=== PATIENT | female | born 1940 | race Caucasian/White ===

== ENCOUNTER → 2016-08-21 14:19 | Outpatient (CLI) | payer MEDICARE, OTHER ==
[2014-01-14 09:53] VITALS: BMI 35.9
[~2016-08-21 14:19] MED LIST: ASPIRIN EC81 M1 PO; BYSTOLIC2.5 MG PO; BYSTOLIC5 MG PO; CARDIZEM 90 MG90 MG PO; CORDARONE200 MG PO; FISH OIL 1,0001 CA1 PO; FORTAMET500 MG/BOT PO; GLUCOTROL 5 MG T5 MG PO; HEMOCYTE PLUS C1 CAP PO; K-DUR20 MEQ PO; LANTUS SOL100 UNIT/1 SC; LASIX40 MG PO; LISINOPRIL-HCTZ1 TA2 PO; PREDNISONE20 MG PO; PREVACID15 MG PO; SUPER B COMPLE150 MG PO; VITAMIN D2000 UNIT PO; VITAMIN D250000 UNIT PO
== END | disposition home or self-care (01) ==
LOC: D.MRI 14:19
DX: G43.119 Migraine with aura, intractable, without status migrainosus (principal)

== ENCOUNTER 2016-08-31 13:00 | Outpatient (CLI) | payer MEDICARE, OTHER ==
[2014-01-14 09:53] VITALS: BMI 35.9
== END 2016-08-31 23:59 | disposition home or self-care (01) ==
LOC: D.MRI 13:00
DX: G93.9 Disorder of brain, unspecified (principal)

== ENCOUNTER 2016-09-03 17:29 | Inpatient (IN) | payer MEDICARE, OTHER ==
[~2016-09-03] VITALS: Ht 162.6 cm; Wt 85.9 kg
[2016-09-03] MEDS ORDERED: PRINIVIL10 MG PO (20:31)
[2016-09-03] MEDS ORDERED: PROBIOTIC1 EAC1 PO (20:32)
[2016-09-03 20:34] VITALS: BP 164/51; Ht 162.6 cm; Wt 85.9 kg
[2016-09-03] MEDS ORDERED: TOUJEO SOL300 UNIT/1 SC (21:01)
[2016-09-04] VITALS: BP 166/72
[2016-09-04 04:00] VITALS: BP 174/64
[2016-09-04 04:36] LABS: BASOPHILS 0.2 % (0-2); EOSINOPHILS 0.8 % (0-7); HEMATOCRIT 33.1 % (36.0-48.0); HEMOGLOBIN 11.1 g/dL (12-16); LYMPHOCYTES 28.2 % (15-50); MCH 32.2 pg (26.0-34.0); MCHC 33.5 g/dL (31.0-37.0); MCV 95.9 fL (80.0-100.0); MONOCYTES 8.7 % (2-11); NEUTROPHILS 62.1 % (40-80); PLATELET COUNT 174 10x3/uL (130-400); RBC 3.45 10x6/uL (4.00-5.40); RDW 13.1 % (11.5-14.5); WBC 5.3 10x3/uL (4.8-10.8)
[2016-09-04 04:56] LABS: INR 1.07 (0.85-1.17); PROTIME 13.8 SECONDS (11.6-15.0)
[2016-09-04 05:07] LABS: ANION GAP 11.3 mmol/L (8-16); CALCIUM 8.5 mg/dL (8.5-10.1); CARBON DIOXIDE 27.5 mmol/L (21.0-32.0); CREATININE - SERUM 1.3 mg/dL (0.6-1.3); MAGNESIUM - SERUM 2.2 mg/dL (1.8-2.4); PHOSPHOROUS 4.4 mg/dL (2.5-4.9); POTASSIUM - SERUM 3.8 mmol/L (3.5-5.1)
[2016-09-04 09:41] VITALS: BP 128/63
--- NOTE | 2016-09-04 11:13 | HP ---
PATIENT: LAURA HAMMOND MEDICAL RECORD: [id number] ACCOUNT: [id number] LOCATION:[address] : 44 ADMISSION DATE: 09/03/16 HISTORY AND PHYSICAL EXAMINATION Admission History and Physical HISTORY OF PRESENT ILLNESS: A 76-year-old female, received in transfer from [facility] where the patient was evaluated for chest pain, intractable nausea and vomiting, elevated D-dimer, hypertensive crisis. PAST MEDICAL HISTORY: Significant for hypertension, diabetes, coronary artery disease, hyperlipidemia and anxiety. PAST SURGICAL HISTORY: Coronary artery bypass graft, colonoscopy, EGD with esophageal dilatation, total abdominal hysterectomy, bilateral salpingo-oophorectomy, heart cath with stent in 2010 and appendectomy. SOCIAL HISTORY: . No history alcohol or tobacco. No illicit drug use. FAMILY HISTORY: Mother with cardiovascular disease, [place] times 2. Grandmother with heart disease. Grandfather with cancer. Brother with diabetes. REVIEW OF SYSTEMS: Acute chest pain, nausea and vomiting, started this afternoon, progressed, went into the ER as noted above. HEENT: No cephalgia, visual changes, tinnitus, epistaxis or dysphagia. CARDIOVASCULAR: Chest pain, resolved. Cardiac enzymes were negative at the ER in [place]. Denies palpitations. PULMONARY: Denies hemoptysis, denies night sweats. GASTROINTESTINAL: Denies hematemesis, hematochezia or melena. Does admit nausea and vomiting. GENITOURINARY: Denies dysuria, denies change in frequency. MUSCULOSKELETAL: No acute changes. ENDOCRINE: Denies polyuria, polydipsia or polyphagia. Has had labile glucose since her MRI with contrast. SHE IS ALLERGIC TO CONTRAST, had to have prednisone prophylaxis. CURRENT MEDICATIONS: Listed as aspirin 81 mg daily, B complex, vitamin D 50,000 units weekly, Pepcid 20 mg b.i.d., glipizide 5 mg, Lantus 10 units q.h.s., Synthroid 50 mcg daily, lisinopril/hydrochlorothiazide 10/12.5 daily and metformin 500 mg daily. PHYSICAL EXAMINATION: VITAL SIGNS: Temp 97.9, blood pressure is 164/51, heart rate 64, respirations 20 and O2 sat is 96% room air. GENERAL: Alert and oriented, mild to moderate distress secondary to nausea and vomiting. HEENT: Head is normocephalic and atraumatic. Eyes: Pupils are equally round and reactive. Ears: Canals patent. TMs are intact. Nose: Nares patent without drainage. Throat: No erythema, no exudates. NECK: Supple. No lymphadenopathy, no JVD. HEART: Regular rate and rhythm. No S3, S4, no rub. LUNGS: Clear to auscultation bilaterally. Breathing is nonlabored. ABDOMEN: Soft, mild epigastric tenderness, no rebound, no guarding. EXTREMITIES: Present times 4. Left lower extremity, positive Homans sign. HISTORY AND PHYSICAL [id number] LAURA HAMMOND NEUROLOGIC: Cranial nerves II through XII intact. No focal deficits. SKIN: Warm and dry. No rash. LABORATORY AND DIAGNOSTIC DATA: Reviewed from [place], BNP 135.7, glucose 280, BUN 32, creatinine 1.44. Sodium 138, potassium 4.2, chloride 102, bicarbonate 21.6. AST 17, ALT 16, alkaline phosphatase 61. CK 52, troponin 0.023. CBC: White count 8.7, hemoglobin 13.2, hematocrit 39.2 Chest x-ray reported with no abnormalities. D-dimer elevated at 750 ng/mL. ASSESSMENT AND PLAN: 1. Hypertensive crisis. Restart blood pressure medications. 2. Labile diabetes, sliding scale insulin. 3. Nausea and vomiting with history of esophageal stricture. We will obtain a barium swallow in a.m. 4. Persistent nausea and vomiting, Phenergan IV q.6 hours p.r.n., IV fluids. 5. Elevated D-dimer with positive Homans to left lower extremity. We will obtain a lower extremity ultrasound. Supportive care. TRANSINT:[id number] Voice Confirmation ID: [id number] DOCUMENT ID: [id number] LUDIN BERMEO DO at 1113 CC: [id number] DICTATION DATE: 09/03/162138 CMS EXPERT: 09/04/16 0018 ADM IN [facility] [address] [place] [address]
[2016-09-04] MEDS ORDERED: LEVSIN/ANASP0.125 MG PO (12:13)
[2016-09-04 12:23] VITALS: BP 146/51
--- NOTE | 2016-09-05 08:10 | DS ---
PATIENT:LAURA HAMMOND :44 MEDICAL RECORD: [id number] DISCHARGE SUMMARY ADMISSION DATE: 09/03/16 DISCHARGE DATE: 09/04/16 DATE OF ADMISSION: 09/03/2016. DATE OF DISCHARGE: 09/04/2016. ADMISSION DIAGNOSES: Hypertensive crisis, labile diabetes, intractable nausea and vomiting with history of esophageal stricture, elevated D-dimer, positive Homans left lower extremity. DISCHARGE DIAGNOSES: Esophageal spasm; nausea and vomiting, resolved. HOSPITAL COURSE: The patient was admitted as a transfer from the [facility] in [place], started with IV fluids, Phenergan for nausea, shows no relief with Zofran, symptoms improved. With her history of esophageal stricture, barium swallow was obtained. No stricture, but it did show esophageal spasm, poor esophageal motility. The patient is feeling much better. Cardiac enzymes were negative. She does have a cardiac history, has a stress test scheduled in the near future. She is anxious to go home. She is tolerating clear liquids. Discharged home in significantly improved condition. DISCHARGE MEDICATIONS: Per med rec. We will add Levsin p.r.n. esophageal spasm. FOLLOWUP: She will follow up with her credit assessment analyst, Dr. Bowie, follow up with her outside machinist apprentice and follow up with Dr. Duque, her GI physician if symptoms recur or persist. Counseled on a clear liquid diet, advance as tolerated, small portions. PHYSICAL EXAMINATION: VITAL SIGNS ON DISCHARGE: Temp 98.1, blood pressure is 128/63, heart rate is 77, respirations 19, O2 sats 98% on room air. GENERAL: Alert and oriented, no distress. HEART: Regular. LUNGS: Clear. ABDOMEN: Soft, nontender. EXTREMITIES: Present times 4. With the elevated D-dimer and Homans, this was likely reactionary, but left lower extremity DVT was negative for any occlusion. See chart for further details. TRANSINT:[id number] Voice Confirmation ID: [id number] DOCUMENT ID: [id number] LUDIN BERMEO DO at 0810 CC: [id number] DICTATION DATE: 09/04/16 1221 CLINICAL PRACTICE CONSULTANT: 09/05/16 0027 DIS IN 09/04/16 [facility] [address] [place] [address]
--- NOTE | 2016-09-05 13:39 | CN ---
PATIENT NAME:LAURA HAMMOND MEDICAL RECORD: [id number] : 44 LOCATION:[address] ADMIT DATE: 09/03/16 ACCOUNT: [id number] CONSULTING PHYSICIAN: SUMIT TREJO MD REFERRING PHYSICIAN: LUDIN BERMEO DO DATE OF CONSULTATION: 09/04/2016 HISTORY OF PRESENT ILLNESS: A 76-year-old lady with a known history of coronary artery disease, status post coronary artery bypass grafting, who had been doing fairly well, had onset yesterday of atypical chest pain, nausea and vomiting. She has had a stricture in the past. She presented to [place] ER and was somewhat hypertensive. The pain has resolved completely with resolution of hypertension. Cardiac enzymes negative. ECG without acute changes. We are asked to see her concerned her cardiovascular status. PAST MEDICAL HISTORY: Includes: 1. History of hypertension. 2. Diabetes mellitus. 3. Gastroesophageal reflux disease. 4. Esophageal stricture. MEDICATIONS: Include metformin 500 daily, glipizide 5 mg p.o. daily, insulin per scale, Prevacid 15 daily, aspirin 81 daily, lisinopril 10 daily. ALLERGIES: CONTRAST. SOCIAL HISTORY: Lives in [place]. She is a nonsmoker. She is able to take care of her ADLs. REVIEW OF SYSTEMS: The patient reports easy bruising but reports no swollen glands. The patient reports no fever, no night sweats, no significant weight gain, no significant weight loss. No significant exercise tolerance. The patient reports no dry eyes, no irritation, no vision change. Patient reports no difficulty hearing and no ear pain. Patient reports no frequent nose bleeds or nose and sinus problems. Patient reports on arm pain on exertion. No shortness of breath while lying down. No history of heart murmur. Patient reports no cough, no wheezing or coughing up blood. Patient reports no abdominal pain, no vomiting. Normal appetite. No diarrhea and not vomiting blood. No nausea and no constipation. Patient reports no incontinence. No difficulty urinating. No hematuria. No increased frequency. Patient reports no muscle aches. No weakness, no arthralgias, no back pain. No swelling of the extremities. Patient reports no abnormal mole, no jaundice, no rashes. Reports no loss of consciousness. No weakness and no numbness. No seizures, dizziness, or headaches. The patient reports no depression, no sleep disturbance, feeling safe in a relationship and no alcohol abuse. Patient reports on fatigue. Reports no runny nose or sinus pressure. No itching, no hives, and no frequent sneezing. PHYSICAL EXAMINATION: GENERAL: Pleasant female in no acute distress. VITAL SIGNS: Blood pressure 128/63, pulse 77 and regular. HEENT: Normocephalic, atraumatic. NECK: No bruits noted. HEART: Regular. A II/ systolic ejection murmur. LUNGS: Good air excursion. CONSULT REPORT [id number] LAURA HAMMOND ABDOMEN: Soft, nontender. EXTREMITIES: Pulse 2+. No edema. DIAGNOSTIC DATA: ECG without acute changes. IMPRESSION: Improving, I agree with current management. We will check echocardiographic study. Further recommendations based on the above. TRANSINT:[id number] Voice Confirmation ID: [id number] DOCUMENT ID: [id number] SUMIT TREJO MD at 1339 CC: [id number] DICTATION DATE: 09/04/16 1022 AIR TURNING MACHINE FEEDER: 09/04/16 1203 DIS IN 09/04/16 [facility] [address] [place] [address]
== END 2016-09-04 14:47 | disposition home or self-care (01) | DRG 392 ==
LOC: D.M2 17:29
PROVIDERS: ADMIT Family Medicine
DX: K22.4 Dyskinesia of esophagus (principal); I16.9 Hypertensive crisis, unspecified; E11.9 Type 2 diabetes mellitus without complications; I25.10 Atherosclerotic heart disease of native coronary artery without angina pectoris; E78.5 Hyperlipidemia, unspecified

== ENCOUNTER → 2016-09-26 15:08 | Outpatient (CLI) | payer MEDICARE, OTHER ==
[2016-09-03 20:34] VITALS: BMI 32.5
[~2016-09-26 15:08] MED LIST changes: +LEVSIN/ANASP0.125 MG PO; +PRINIVIL10 MG PO; +PROBIOTIC1 EAC1 PO; +TOUJEO SOL300 UNIT/1 SC
== END | disposition home or self-care (01) ==
LOC: D.RAD 15:08
DX: M54.5 Low back pain (principal); M79.1 Myalgia

== ENCOUNTER → 2016-12-14 09:02 | Outpatient (CLI) | payer MEDICARE, OTHER ==
[2016-09-03 20:34] VITALS: BMI 32.5
== END ==
LOC: D.MAMMO 09:02
DX: Z12.31 Encounter for screening mammogram for malignant neoplasm of breast (principal)

== ENCOUNTER 2017-02-28 11:43 | Inpatient (IN) | payer MEDICARE, OTHER ==
[~2017-02-28] VITALS: Ht 162.6 cm; Wt 87.5 kg
[2017-02-28] MEDS ORDERED: GLUCOTROL 5 MG T5 MG PO (12:07)
[2017-02-28 13:35] LABS: BASOPHILS 0.2 % (0-2); EOSINOPHILS 1.5 % (0-7); HEMATOCRIT 35.4 % (36.0-48.0); HEMOGLOBIN 11.8 g/dL (12-16); IMMATURE GRANULOCYTES 0.1 % (0-5); LYMPHOCYTES 10.2 % (15-50); MCH 32.4 pg (26.0-34.0); MCHC 33.3 g/dL (31.0-37.0); MCV 97.3 fL (80.0-100.0); MEAN PLATELET VOLUME 10.9 fL (7.4-10.4); PLATELET COUNT 207 10x3/uL (130-400); RBC 3.64 10x6/uL (4.00-5.40); RDW 12.8 % (11.5-14.5); WBC 8.1 10x3/uL (4.8-10.8)
[2017-02-28 13:41] VITALS: BP 153/65; Ht 162.6 cm; Wt 87.5 kg
[2017-02-28 13:50] LABS: INR 0.99 (0.85-1.17)
[2017-02-28 14:01] LABS: ALBUMIN 3.2 g/dL (3.4-5.0); ANION GAP 14.4 mmol/L (8-16); BILIRUBIN - TOTAL 0.5 mg/dL (0.2-1.3); CALCIUM 8.4 mg/dL (8.5-10.1); CARBON DIOXIDE 28.8 mmol/L (21.0-32.0); CREATININE - SERUM 1.5 mg/dL (0.6-1.3); POTASSIUM - SERUM 4.2 mmol/L (3.5-5.1); PROTEIN - SERUM 6.5 g/dL (6.4-8.2)
[2017-02-28 16:09] VITALS: BP 136/70
[2017-02-28 21:09] VITALS: BP 148/54
[2017-03-01 01:59] VITALS: BP 174/47
[2017-03-01 04:23] LABS: BASOPHILS 0.3 % (0-2); EOSINOPHILS 3.5 % (0-7); HEMATOCRIT 31.4 % (36.0-48.0); HEMOGLOBIN 10.5 g/dL (12-16); IMMATURE GRANULOCYTES 0.3 % (0-5); MCH 32.1 pg (26.0-34.0); MCHC 33.4 g/dL (31.0-37.0); MEAN PLATELET VOLUME 11.1 fL (7.4-10.4); MONOCYTES 11.8 % (2-11); NEUTROPHILS 66.1 % (40-80); PLATELET COUNT 212 10x3/uL (130-400); RBC 3.27 10x6/uL (4.00-5.40); RDW 12.8 % (11.5-14.5)
[2017-03-01 05:24] LABS: ALBUMIN 2.6 g/dL (3.4-5.0); ANION GAP 12.3 mmol/L (8-16); BILIRUBIN - TOTAL 0.3 mg/dL (0.2-1.3); CALCIUM 8.7 mg/dL (8.5-10.1); CARBON DIOXIDE 26.8 mmol/L (21.0-32.0); CREATININE - SERUM 1.5 mg/dL (0.6-1.3); POTASSIUM - SERUM 4.1 mmol/L (3.5-5.1); PROTEIN - SERUM 5.9 g/dL (6.4-8.2)
[2017-03-01 05:54] VITALS: BP 181/73
[2017-03-01 07:55] VITALS: BP 155/58
[2017-03-01] MEDS ORDERED: MILK OF MAGNESI30 ML PO (08:52)
[2017-03-01] MEDS ORDERED: XARELTO15 MG PO (09:20)
== END 2017-03-01 10:40 | disposition home or self-care (01) | DRG 301 ==
LOC: D.M2 11:43
PROVIDERS: ADMIT Family Medicine
DX: I82.402 Acute embolism and thrombosis of unspecified deep veins of left lower extremity (principal); I25.10 Atherosclerotic heart disease of native coronary artery without angina pectoris; E11.9 Type 2 diabetes mellitus without complications; I10 Essential (primary) hypertension; K21.9 Gastro-esophageal reflux disease without esophagitis; F41.8 Other specified anxiety disorders

== ENCOUNTER → 2017-03-09 16:01 | Outpatient (CLI) | payer MEDICARE, OTHER ==
[2017-02-28 13:41] VITALS: BMI 32.7
[~2017-03-09 16:01] MED LIST changes: +MILK OF MAGNESI30 ML PO; +XARELTO15 MG PO
== END | disposition home or self-care (01) ==
LOC: D.CT 16:01
DX: I82.409 Acute embolism and thrombosis of unspecified deep veins of unspecified lower extremity (principal)

== ENCOUNTER 2017-04-19 13:41 | Outpatient (CLI) | payer MEDICARE, OTHER ==
[2017-04-19 15:21] VITALS: BP 145/96; Ht 162.6 cm
== END 2017-04-19 23:12 | disposition home or self-care (01) ==
LOC: D.OPS 13:41 → D.MS 20:40 → D.OPS 23:12
DX: D64.9 Anemia, unspecified (principal)

== ENCOUNTER → 2017-06-25 15:48 | Outpatient (CLI) | payer MEDICARE, OTHER | END | disposition home or self-care (01) | LOC: D.CT 15:30 | DX: R51 Headache (principal) ==

== ENCOUNTER → 2018-02-06 18:26 | Outpatient (CLI) | payer MEDICARE, OTHER | END | disposition home or self-care (01) | LOC: D.MAMMO 11:45 | DX: Z12.31 Encounter for screening mammogram for malignant neoplasm of breast (principal) ==

== ENCOUNTER → 2018-04-26 16:09 | Outpatient (CLI) | payer MEDICARE, OTHER ==
[~2018-04-26 16:09] MED LIST changes: +COUMADIN2.5 MG PO; +PLAVIX75 MG PO; +PROTONIX40 MG PO
== END | disposition home or self-care (01) ==
LOC: D.CT 16:09
DX: R10.32 Left lower quadrant pain (principal)

== ENCOUNTER 2018-05-11 04:54 | Observation (INO) | payer MEDICARE, OTHER ==
[~2018-05-11] VITALS: Ht 162.6 cm; Wt 91.4 kg
--- NOTE | ~2018-05-11 | HEMODYNAMI ---
PATIENT:LAURA HAMMOND MEDICAL RECORD: [id number] : 44 LOCATION:[facility] D.2102 ADMISSION DATE: 05/11/18 Generatedon:05/12/20189:37 Patient name: LAURA HAMMOND Patient #: [id number] SSN: : 1940 Date of study: 05/12/2018 Page: Of Hemodynamic Procedure Report Patient Data Patient Demographics Procedure consent was obtained First Name: LAURA Gender: Female Last Name: STEPHANY : 1940 [facility] Initial: Kimberlee Age: 77 year(s) Patient #: [id number] Race: Unknown Additional ID: [id number] Contact details [address]: [address] [place] [address] State: [place] City: [place] Zip code: [address] Past Medical History Allergies Allergen Reaction Date Comments Reported Iodine 05/12/2018 Penicillins 05/12/2018 Statins 05/12/2018 Other allergy 05/12/2018 Gadolinium, vaseline, cipro Admission Admission Data Admission Date: 05/11/2018 Admission Time: 6:12 Room #: D.2102 Procedure Procedure Types Cath Procedure Diagnostic Procedure [facility] w/Coronaries w/Grafts Sedation Charges Moderate Sedation up to 30 minutes PCI Procedure Coronary Stent Coronary Stent Initial Procedure Description Procedure Date Procedure Date: 05/12/2018 Procedure Start Time: 8:59 Procedure End Time: 9:36 Procedure Staff Name Function Mohinder Kelly MD Performing Physician Rowan Davila RT Monitor Sylvester Schroeder RN Nurse Rupali Harrington RT Scrub Procedure Data Cath Procedure Fluoroscopy Diagnostic fluoroscopy Total fluoroscopy Time: 7.2 time: 7.2 min min Diagnostic fluoroscopy Total fluoroscopy dose: dose: 1200 mGy 1200 mGy Contrast Material Contrast Material Type Amount (ml) Isovue 300 148 Entry Location Entry Primary Successful Side Size Upsize Upsize Entry Closure Succes sful Closure Location (Fr) 1 (Fr) 2 (Fr) Remarks Device Remarks Femoral Right 5 Fr 6 Fr 6 Fr Exoseal artery Short Short Estimated blood loss: 10 ml Diagnostic catheters Device Type Used For End Catheter Placement MULTIPACK JL 4.0 5Fr Left Coronary catheter Angiography MULTIPACK 3DRC 5Fr Right Coronary catheter Angiography MULTIPACK 3DRC 5Fr SVG Angiography catheter MULTIPACK 3DRC 5Fr Internal mammary catheter arteriography MULTIPACK Pigtail 5 Fr LV Angiography catheter MULTIPACK Pigtail 5 Fr Aortic Root catheter Angiography Procedure Complications No complications Procedure Medications Medication Administration Route Dosage Oxygen etCO2 Nasal cannula 2 l/min Heparin Flush Bag added to field 2 bags (1000units/500ml NS) 0.9% NaCl I.V. 100 ml/hr Lidocaine 2% added to field 20 Fentanyl I.V. 50 mcg Versed I.V. 1 mg Fentanyl I.V. 50 mcg Versed I.V. 1 mg Heparin Bolus I.V. 4000 units Integrilin (Bolus I.V. 8.5 ml 2mg/ml) Integrilin (Bolus wasted 1.5 ml 2mg/ml) Plavix P.O. 600 mg Hemodynamics Rest Heart Rate: 85 (bpm) Pressure Samples Time Site Value (mmHg) Purpose Heart Use Rate(bpm) 9:09 LV 160/0,9 EDP 89 9:09 AO 160/68(108) Pullback 89 9:09 LV 153/9,9 Pullback 89 9:09 AO 158/67(106) Snapshot 89 Gradients Valve Time Site 1 Site 2 Mean SEP/DFP Peak To Heart Use (mmHg) (sec/min) Peak Rate (mmHg) (bpm) Aortic 9:09 LV AO 0 89 153/9,9 160/68(108) Calculations Valve P-P Mean Valve Index Valve Source Name Gradient Area Flow (cm2) Aortic 0 0 Snapshots Pre Cath Intra NCS Post Cath Vital Signs Time Heart Resp SPO2 etCO2 NIBP (mmHg) Rhythm Pain Sedation Rate (ipm) (%) (mmHg) Status Level (bpm) 8:48:55 94 16 99 25.4 190/89(145) NSR 0 (11) 10(A) , No pain 8:53:20 89 16 99 31.5 188/91(140) NSR 0 (11) 10(A) , No pain 8:57:44 84 17 99 29.2 177/76(125) NSR 0 (11) 9(A) , No pain 9:02:08 86 16 98 34.5 168/89(125) NSR 0 (11) 9(A) , No pain 9:06:32 87 17 98 36.7 173/77(125) NSR 0 (11) 9(A) , No pain 9:10:57 87 16 98 36 173/75(128) NSR 0 (11) 9(A) , No pain 9:15:19 86 16 98 36.7 162/78(120) NSR 0 (11) 9(A) , No pain 9:19:43 85 16 98 35.9 165/75(136) NSR 0 (11) 9(A) , No pain 9:24:05 84 17 98 32.9 165/75(125) NSR 0 (11) 9(A) , No pain 9:28:29 83 16 97 36.7 169/79(130) NSR 0 (11) 9(A) , No pain 9:30:01 82 17 97 33.7 182/88(134) NSR 0 (11) 9(A) , No pain Medications Time Medication Route Dose Verified Delivered Reason Notes Effectiveness by by 8:54:42 Oxygen etCO2 2 Mohinder Phan Per physician Nasal l/min St Brian Schroeder RN cannula 8:54:49 Heparin Flush added 2 Mohinder Sylvester used for Bag to bags St Brian Schroeder RN procedure (1000units/500ml field NAZARIO NS) 8:54:57 0.9% NaCl I.V. 100 Mohinder Phan Per physician ml/hr St Brian Schroeder RN, MD 8:55:06 Lidocaine 2% added 20ml Mohinder Phan used for to vial St Brian Schroeder RN procedure field NAZARIO 8:56:23 Fentanyl I.V. 50 Mohinder Jacky for sedation mcg St Brian Schroeder RN, MD 8:56:29 Versed I.V. 1 mg Mohinder Phan for sedation St Brian Schroeder RN, MD 9:01:26 Fentanyl I.V. 50 Mohinder Phan for sedation mcg [facility] Brian Schroeder RN, MD 9:01:30 Versed I.V. 1 mg Mohinder Jacky for sedation [facility] Brian Schroeder RN, MD 9:15:54 Heparin Bolus I.V. 4000 Mohinder Phan for units [facility] Brian Schroeder RN anticoagulation 9:16:06 Integrilin I.V. 8.5 Mohinder Phan for (Bolus 2mg/ml) ml Leticia Schroeder RN antiplatelet MD therapy 9:16:12 Integrilin wasted 1.5 Mohinder Phan for (Bolus 2mg/ml) ml St Brian Schroeder RN antiplatelet MD therapy 9:29:29 Plavix P.O. 600 Mohinder Phan for mg [facility] Brian Schroeder RN antiplatelet MD therapy Procedure Log Time Note 8:14:33 Time tracking: Regular hours (M-F 7:00 - 5:00) 8:14:37 Plan of Care:Hemodynamics will remain stable., Cardiac rhythm will remain stable., Comfort level will be maintained., Respiratory function will remain adequate., Patient/ family verbilizes understanding of procedure., Procedure tolerated without complication., Recovers from procedure without complications.. 8:29:20 Sylvester Schroeder RN sent for patient. Start room use. 8:39:16 Patient received from PCU to CCL 2 Alert and oriented. Tansferred to table in Supine position. 8:39:17 Warm blankets applied, and nicolette hugger turned on for patient comfort. 8:39:17 Correct patient and procedure confirmed by team. 8:39:19 Signed procedure consent form obtained from patient. 8:39:19 ECG and BP/O2 sat monitors applied to patient. 8:39:20 Full Disclosure recording started 8:47:41 Vital chart was started 8:47:47 Rhythm: sinus rhythm 8:47:57 H&P Date Dictated: 05/11/2018 Within 30 days and on chart.. 8:47:58 Pre-procedure instructions explained to patient. 8:47:59 Pre-op teaching completed and patient verbalized understanding. 8:48:00 Family in patients room. 8:48:01 Patient NPO since Midnight. 8:48:07 Patient allergic to Iodine 8:48:14 Patient allergic to Penicillins 8:48:22 Patient allergic to Statins 8:49:07 Patient allergic to Other allergy Gadolinium, vaseline, cipro 8:49:11 Is the patient allergic to Iodine/contrast media? Yes. 8:49:11 Was the patient premedicated? Yes 8:49:13 Is patient on blood thinner?Yes 8:49:35 LAST DOSE OF COUMADIN 05/10/18 8:49:37 Patient diabetic? Yes. 8:49:38 If diabetic: On Metformin? Yes 8:49:40 If on Metformin: Last Dose? 05/10/2018 8:50:03 Previous problem with sedation/anesthesia? Yes DIFFICULTY WAKING 8:50:05 Snore? Yes 8:50:08 Sleep apnea? Yes 8:50:09 Deviated septum? No 8:50:10 Opens mouth fully? Yes 8:50:11 Sticks out tongue? Yes 8:50:15 Airway obstruction? No ? 8:50:17 Dentures? No ? 8:50:20 Pre procedure: right dorsailis pedis pulse 2+ Normal; easily identifiable; not easily obliterated 8:50:23 Patient pain scale 0/10 ?. 8:50:32 IV patent on arrival in right antecubital with 0.9% NaCl at [facility]. 8:50:34 Lab results completed and on chart. 8:50:37 Right groin area was prepped with chlora-prep and draped in sterile fashion 8:50:38 Alarms reviewed by R. N. 8:50:38 Sharps counted by scrub and verified by R.N. 8:50:41 Use device set Femoral Dx 8:50:42 ACIST Syringe (97159) opened to sterile field. 8:50:42 Bag Decanter (2002S) opened to sterile field. 8:50:43 Medline Cath Pack ([id number]) opened to sterile field. 8:50:43 DIAGNOSTIC WIRE .035 260cm J wire (105508) opened to sterile field. 8:50:44 ACIST Hand Control (73884) opened to sterile field. 8:50:45 ACIST Manifold (99247) opened to sterile field. 8:50:45 DIAGNOSTIC Multipack 5Fr catheter set ([id number]) opened to sterile field. 8:50:46 Tegaderm 4 x 4 (1626W) opened to sterile field. 8:50:48 SHEATH 5FR [place] (TEJ536) opened to sterile field. 8:54:42 Oxygen 2 l/min etCO2 Nasal cannula was administered by Sylvester Schroeder RN; Per physician; 8:54:49 Heparin Flush Bag (1000units/500ml NS) 2 bags added to field was administered by Sylvester Schroeder RN; used for procedure; 8:54:57 0.9% NaCl 100 ml/hr I.V. was administered by Sylvester Schroeder RN; Per physician; 8:55:06 Lidocaine 2% 20ml vial added to field was administered by Sylvester Schroeder RN; used for procedure; 8:55:56 Final Timeout: patient, procedure, and site verified with staff and physician. All members of the team are in agreement. 8:55:58 Right groin site verified by team. 8:56:01 Fire Safety Assessment: A--An alcohol-based skin anteseptic being used preoperatively., C--Open oxygen or nitrous oxide is being used. 8:56:04 Physical assessment completed. ASA score P 2 - A patient with mild systemic disease as per Mohinder Kelly MD. 8:56:07 Sedation plan: IV Moderate Sedation Medication:Versed, Fentanyl 8:56:20 Baseline sample Acquired. 8:56:23 Fentanyl 50 mcg I.V. was administered by Sylvester Schroeder RN; for sedation; 8:56:29 Versed 1 mg I.V. was administered by Sylvester Schroeder RN; for sedation; 8:59:24 Procedure started. 8:59:28 Local anesthetic to right femoral artery with Lidocaine 2% by Mohinder Kelly MD.INITIAL ACCESS ONLY 9:00:12 A 5 Fr sheath was inserted into the Right Femoral artery 9:01:26 Fentanyl 50 mcg I.V. was administered by Sylvester Schroeder RN; for sedation; 9:01:30 Versed 1 mg I.V. was administered by Sylvester Schroeder RN; for sedation; 9:02:44 A MULTIPACK JL 4.0 5Fr catheter was advanced over the wire and used for Left Coronary Angiography. 9:04:04 Catheter removed. 9:04:49 A MULTIPACK 3DRC 5Fr catheter was advanced over the wire and used for Right Coronary Angiography. 9:06:01 A MULTIPACK 3DRC 5Fr catheter was advanced over the wire and used for SVG Angiography. TO RCA OCCLUDED 9:07:37 A MULTIPACK 3DRC 5Fr catheter was advanced over the wire and used for Internal mammary arteriography. TO LAD--ATRETIC 9:07:42 Catheter removed. 9:07:50 A MULTIPACK Pigtail 5 Fr catheter was advanced over the wire and used for LV Angiography. 9:09:04 LV gram done using WEN 9:09:05 LV hemodynamics recorded. 9:09:08 Injector settings: Ml/sec: 10, Volume: 20, 9:09:12 EF : 55 % 9:09:49 A MULTIPACK Pigtail 5 Fr catheter was advanced over the wire and used for Aortic Root Angiography. 9:10:52 Catheter removed. 9:10:55 Use device set SALEM PCI 9:10:57 SHEATH 6FR [place] (JUI274) opened to sterile field. 9:11:00 INFLATOR Merit BasixCompak (HV0491) opened to sterile field. 9:11:02 WHISPER 300cm guide wire ([id number]) opened to sterile field. 9:11:58 GUIDE 6FR HS I catheter (LA6HSI) opened to sterile field. 9:12:08 Sheath upsized to a 6 Fr Short. 9:12:25 6 Fr HS I guide catheter was inserted over the wire 9:14:35 WHISPER wire advanced. 9:15:54 Heparin Bolus 4000 units I.V. was administered by Sylvester Schroeder RN; for anticoagulation; 9:16:06 Integrilin (Bolus 2mg/ml) 8.5 ml I.V. was administered by Sylvester Schroeder RN; for antiplatelet therapy; 9:16:12 Integrilin (Bolus 2mg/ml) 1.5 ml wasted was administered by Sylvester Schroeder RN; for antiplatelet therapy; 9:17:22 Inflate balloon Inflation number: 1 A EUPHORA 3.0 x 20 Balloon ([id number]) was prepped and advanced across the Dist RCA, then inflated to 10 RAMIREZ for 0:20 (min:sec). 9:18:17 Inflation number: 2 The EUPHORA 3.0 x 20 Balloon ([id number]) was reinflated across the Dist RCA, to 12 RAMIREZ for 0:20 (min:sec). 9:18:41 Balloon removed over the wire. 9:22:12 Place stent Inflation Number: 3 A LASHAE OTW 3.0 x 12 stent ([id number]) was prepped and advanced across the Dist RCA. The stent was deployed at 14 RAMIREZ for 0:20 (min:sec). 9:22:55 Stent catheter was removed intact over wire. 9:23:35 GUIDE 6FR EBU 4.0 guide catheter ([id number]) opened to sterile field. 9:25:35 Place stent Inflation Number: 4 A LASHAE OTW 3.0 x 34 stent ([id number]) was prepped and advanced across the Dist RCA. The stent was deployed at 14 RAMIREZ for 0:30 (min:sec). 9:26:01 Stent catheter was removed intact over wire. 9::03 Wire removed. 9::04 Guide catheter removed. 9:27:06 Sheath upsized to a 6 Fr Short. 9:27:39 6FR SHEATH KINKED, REPLACED WITH NEW SHEATH 9::45 Sheath removed intact; hemostasis achieved with Exoseal to the Right Femoral artery. 9::47 Procedure ended.(Physican Out) 9::14 Fluoroscopy time 07.20 minutes. 9:28:20 Fluoroscopy dose: 1200 mGy 9::20 Flurop Dose total: 1200 9:: Contrast amount:Isovue 300 148ml. 9:28:29 Sharps counted by scrub and verified by R.N. 9:28:30 Insertion/operative site no bleeding no hematoma. 9:28:33 Post-op/insertion site Right Femoral artery dressed using a 4 x 4 and Tegaderm. 9:28:37 Post right femoral artery:stable, clean and dry 9:28:38 Post Procedure Pulses reassessed and unchanged 9:28:44 Post-procedure physical assessment completed. ASA score P 2 - A patient with mild systemic disease as per Mohinder Kelly MD. 9:28:47 Post procedure rhythm: unchanged. 9:28:52 Estimated blood loss: 10 ml 9:28:54 Post procedure instruction explained to patient.Patient verbalizes understanding. 9:28:54 Patient needs reinforcement of post procedure teaching. 9:29:04 Procedure type changed to Cath procedure, Diagnostic procedure, LHC, LHC w/Coronaries w/Grafts, Sedation Charges, Moderate Sedation up to 30 minutes, PCI procedure, Coronary Stent, Coronary Stent Initial 9:29:17 Procedure Complication : No complications 9:29:27 SHEATH 6FR [place] (STQ029) opened to sterile field. 9:29:29 Plavix 600 mg P.O. was administered by Sylvester Schroeder RN; for antiplatelet therapy; 9:29:30 See physician's report for complete and final results. 9:29:47 EXOSEAL 6Fr (EX600) opened to sterile field. 9:30:29 Procedure and supply charges have been captured, reviewed, submitted and are correct. 9:32:36 Vital chart was stopped 9:32:38 Report given to PCU. 9:32:41 Patient transfered to PCU with Bed. 9:36:40 Procedure ended. 9:36:40 Full Disclosure recording stopped 9:36:44 End room use (Document Last) Intervention Summary Intervention Notes Time ActionType Lesion and Equipment Action# Pressure Duration Attributes Used 9:17:22 Inflate Dist RCA EUPHORA 3.0 x 1 10 00:20 balloon 20 Balloon ([id number]) 9:18:17 Reinflate Dist RCA EUPHORA 3.0 x 2 12 00:20 balloon 20 Balloon ([id number]) 9:22:12 Place stent Dist RCA LASHAE OTW 3.0 3 14 00:20 x 12 stent ([id number]) 9:25:35 Place stent Dist RCA LASHAE OTW 3.0 4 14 00:30 x 34 stent ([id number]) Device Usage Item Name Manufacture Quantity Catalog Hospital Part Current Mini [facility] Lot# / Number Charge Number Stock Stock Serial# Code ACIST Syringe Acist 1 61715 812724 232722 248557 20 (49115) Medical Systems Inc Bag Decanter Microtek 1 2002S 014308 25002 403538 5 (2001S) Medical Inc. Medline Cath Medline 1 [id number] 353214 77866 246967 5 Pack ([id number]) DIAGNOSTIC [facility] Huber 1 505073 844821 697884 458915 30 WIRE .035 260cm J wire (615577) ACIST Hand Acist 1 94727 378862 345077 092663 5 Control Medical (26426) Systems Inc ACIST Acist 1 53055 977615 490347 984596 5 Manifold Medical (85906) Systems Inc DIAGNOSTIC Cardinal 1 YX6833 510849 75953 186188 30 Multipack 5Fr Health catheter set (OD9436) Tegaderm 4 x 3M 1 1626W 809707 606660 925361 5 4 (1626W) SHEATH 5FR Terumo 1 CRU919 613540 707661 547624 5 [place] (WNY524) MULTIPACK JL Cardinal 1 799971 5 4.0 5Fr Health catheter MULTIPACK Cardinal 1 719173 5 3DRC 5Fr Health catheter MULTIPACK Cardinal 1 360684 5 Pigtail 5 Fr Health catheter SHEATH 6FR Terumo 2 AAX383 517497 025740 999748 40 [place] (BMO793) INFLATOR Merit 1 IT7738 694697 015979 403874 15 [facility] Medical BasixCompak (IG7546) WHISPER 300cm Sweet 1 [id number] 330508 327495 812784 5 guide wire Vascular ([id number]) GUIDE 6FR HS Medtronic 1 LA6HSI 453403 16439 216553 1 I catheter (LA6HSI) EUPHORA 3.0 x Medtronic 1 ILQ2195Q 589261 155033 015816 5 20 Balloon ([id number]) LASHAE OTW 3.0 Medtronic 1 [id number] 008627 9101417 209895 5 [id number] x 12 stent ([id number]) GUIDE 6FR EBU Medtronic 1 TS4UHR87 289704 66203 422096 1 4.0 guide catheter ([id number]) LASHAE OTW 3.0 Medtronic 1 [id number] 087743 3884407 549400 5 [id number] x 34 stent ([id number]) EXOSEAL 6Fr Cardinal 1 EX600 122968 228914 862539 10 (EX600) Health Signature Audit [place] Stage Time Signature Unsigned Intra-Procedure 05/12/2018 Rowan 9:36:56 AM Counts RT(R) Signatures Monitor : Rowan Signature : Counts RT Date : Time : [facility] [address] [facility] [place] [address]
[~2018-05-11 04:54] MED LIST changes: -COUMADIN2.5 MG PO; -PLAVIX75 MG PO; -PROTONIX40 MG PO
[2018-05-11 05:24] LABS: BASOPHILS 0.3 % (0-2); EOSINOPHILS 1.5 % (0-7); HEMATOCRIT 36.7 % (36.0-48.0); HEMOGLOBIN 12.3 g/dL (12-16); IMMATURE GRANULOCYTES 0.2 % (0-5); LYMPHOCYTES 18.5 % (15-50); MCHC 33.5 g/dL (31.0-37.0); MCV 95.6 fL (80.0-100.0); MEAN PLATELET VOLUME 11.2 fL (7.4-10.4); MONOCYTES 11.1 % (2-11); NEUTROPHILS 68.4 % (40-80); PLATELET COUNT 212 10x3/uL (130-400); RBC 3.84 10x6/uL (4.00-5.40); RDW 13.6 % (11.5-14.5); WBC 5.9 10x3/uL (4.8-10.8)
[2018-05-11 05:36] LABS: APTT 38.1 SECONDS (22.8-39.4); INR 1.8 (0.85-1.17); PROTIME 20.2 SECONDS (11.6-15.0)
[2018-05-11 05:42] LABS: ALBUMIN 3.5 g/dL (3.4-5.0); ALKALINE PHOSPHATASE 70 U/L (46-116); ALT (SGPT) 23 U/L (10-68); CALC OSMOLALITY 287 mosm/kg (275-300); CARBON DIOXIDE 27.1 mmol/L (21.0-32.0); CHLORIDE - SERUM 103 mmol/L (98-107); CREATININE - SERUM 1.4 mg/dL (0.6-1.3); GLUCOSE 159 mg/dL (74-106); POTASSIUM - SERUM 4.4 mmol/L (3.5-5.1); SODIUM 140 mmol/L (136-145); UREA NITROGEN 28 mg/dL (7-18); eGFR NON AFRICAN AMERICAN 39 mL/min (90-120)
[2018-05-11 05:55] LABS: CKMB 2.4 U/L (0.0-3.6); CREATINE KINASE 103 UL (21-215); MAGNESIUM - SERUM 1.9 mg/dL (1.8-2.4); PRO BNP 329 pg/mL (0-450); TROPONIN-I 0.025 ng/mL (0.000-0.060)
--- NOTE | 2018-05-11 07:15 | NUR ---
ASSISTED PT TO RESTROOM AND BACK TO BED. PT ALERT AND ORIENTED X 4 AT THIS TIME PT DENIES ANY PAIN AT THIS TIME. WILL CON'T TO MONITOR PATIENT FOR CHANGES.
[2018-05-11] MEDS ORDERED: COUMADIN2.5 MG PO (08:08)
--- NOTE | 2018-05-11 08:23 | NUR ---
PT REFUSED ALL MEDICATIONS EXCEPT FOR BP MEDICATION D/T "LAST TIME I WAS IN HERE, MY INSURANCE DIDN'T PAY FOR ALL MY MEDICATIONS SO IF I'M NOT GOING TO BE IN HERE LONG THEN I DON'T WANT TO TAKE ANY OF THAT."
[2018-05-11 08:24] VITALS: BP 165/57
--- NOTE | 2018-05-11 08:46 | NUR ---
GOT REPORT FROM ER.
--- NOTE | 2018-05-11 08:55 | NUR ---
PT TO THE FLOOR VIA WHEELCHAIR. TELEMTRY ON. AT BEDSIDE. PT STATES THAT SHE WOULD LIKE TO GO HOME AND IS FEELING MUCH BETTER.
--- NOTE | 2018-05-11 10:03 | NUR ---
OREINTED TO ROOM. CALL LIGHT IN REACH. WILL CONT. PLAN OF CARE.
[2018-05-11 10:04] VITALS: BP 165/67; Ht 162.6 cm; Wt 91.4 kg
[2018-05-11 12:36] LABS: CKMB 2.5 U/L (0.0-3.6); CREATINE KINASE 86 UL (21-215)
[2018-05-11 12:40] LABS: TROPONIN-I 0.117 ng/mL (0.000-0.060)
--- NOTE | 2018-05-11 12:40 | NUR ---
LAB CALLED TO REPORT PT'S ELEVATED TROPONIN.
--- NOTE | 2018-05-11 13:15 | NUR ---
TALKED WITH DR. HUTSON, KEEPING PT FOR THREAD CUTTER IN THE AM.NEW MEDS ORDERED, CONSENTS SIGNED AND IN THE CHART.
[2018-05-11 13:51] VITALS: BP 95/59
[2018-05-11 17:02] VITALS: BP 144/67
[2018-05-11 18:51] LABS: CREATINE KINASE 90 UL (21-215)
[2018-05-11 18:55] LABS: TROPONIN-I 0.157 ng/mL (0.000-0.060)
--- NOTE | 2018-05-11 19:34 | NUR ---
EVENING ROUNDS COMPLETED. REPORT RECEIVED. PT CURRENTLY SITTING UP IN BED WITH EYES OPEN, RR EVEN AND UNLABORED. BED IN LOW POSITION. INTRODUCED SELF TO PT. PT DENIES FURTHER NEEDS AT THIS TIME. ASKED ME TO CLOSE DOOR ON WAY. CALL LIGHT IN REACH. WILL CTM.
[2018-05-11 20:00] VITALS: BP 142/50
--- NOTE | 2018-05-11 23:39 | NUR ---
PT SITTING UP ON SIDE OF BED EATING SNACK, 87 ON TELEMETRY. NO S/S OF DISTRESS NOTED. BED IN LOW POSITION. DENIES FURTHER NEEDS. CALL LIGHT IN REACH. WILL CTM.
[2018-05-12 00:40] VITALS: BP 140/56
[2018-05-12 04:00] VITALS: BP 140/56; BP 159/68
--- NOTE | 2018-05-12 04:20 | NUR ---
PT LYING IN BED WITH EYES CLOSED, RR EVEN AND UNLABORED. BED IN LOW POSITION. NO S/S OF DISTRESS NOTED. CALL LIGHT IN REACH. WILL CTM.
--- NOTE | 2018-05-12 04:40 | NUR ---
RN ROUNDS. ASSESSED. PT RESTING WITH NON LABORED RESPIRATIONS, CALL LIGHT IN REACH. MONITOR AND CPOC.
[2018-05-12 05:16] LABS: BASOPHILS 0 % (0-2); EOSINOPHILS 0.2 % (0-7); HEMOGLOBIN 11.2 g/dL (12-16); IMMATURE GRANULOCYTES 0.2 % (0-5); LYMPHOCYTES 10.3 % (15-50); MCH 31.6 pg (26.0-34.0); MCHC 32.9 g/dL (31.0-37.0); MEAN PLATELET VOLUME 12.1 fL (7.4-10.4); MONOCYTES 1.5 % (2-11); NEUTROPHILS 87.8 % (40-80); RBC 3.54 10x6/uL (4.00-5.40); RDW 13.6 % (11.5-14.5); WBC 5.9 10x3/uL (4.8-10.8)
[2018-05-12 05:17] LABS: PLATELET COUNT 167 10x3/uL (130-400)
[2018-05-12 05:40] LABS: ANION GAP 16.3 mmol/L (8-16); CALCIUM 8.9 mg/dL (8.5-10.1); CARBON DIOXIDE 23.1 mmol/L (21.0-32.0); CHOL - HDL RATIO 3.6 ratio (2.3-4.1); CREATININE - SERUM 1.4 mg/dL (0.6-1.3); LDL-HDL RATIO 2.4 ratio (1.5-3.5)
[2018-05-12 05:46] LABS: POTASSIUM - SERUM 5.4 mmol/L (3.5-5.1)
--- NOTE | 2018-05-12 07:30 | NUR ---
RECEIVED A/A/OX4. REMAINS NPO FOR CATH THIS MORNING AND IS AWARE OF THESE INSTRUCTIONS. DENIES ANY PAIN OR DISCOMFORT AT PRESENT TIME. SL PATENT TO RIGHT FOREARM WITHOUT REDNESS OR EDEMA AT SITE. BED IN LOWEST POSITION, SIDERAILS UP X 2 AND CALL LIGHT IN REACH. NO REQUESTS VOICED. ASSESSMENT COMPLETED. AT BEDSIDE. CONTINUE POC
--- NOTE | 2018-05-12 08:30 | NUR ---
TO HOST/HOSTESS RESTAURANT VIA BED
--- NOTE | 2018-05-12 10:00 | NUR ---
RETURNED TO ROOM FROM LEGAL FILE CLERK. A/A/OX4. DRESSING TO RIGHT GROIN C/D/I. PERIPHERAL PULSES PRESENT. C/O BACK UNDER LEFT SHOULDER BLADE AND REQUESTED TYLENOL WHICH WAS GIVEN. NO OTHER REQUESTS. FAMILY MEMBERS AT BEDSIDE.
[2018-05-12] MEDS ORDERED: PLAVIX75 MG PO (10:38)
[2018-05-12] MEDS ORDERED: PROTONIX40 MG PO (10:55)
[2018-05-12 12:05] VITALS: BP 180/88
--- NOTE | 2018-05-12 12:20 | NUR ---
V/S HAVE BEEN STABLE AND NO BLEEDING FROM RIGHT GROIN. SAT UP IN BED FOR LUNCH AND TOLERATED WELL. ASSISTED UP TO BATHROOM WITHOUT DIFFICULTY.
--- NOTE | 2018-05-12 13:03 | NUR ---
FAMILY AT BS. CALL LIGHT IN REACH. WILL CONT. PLAN OF CARE.
--- NOTE | 2018-05-12 13:50 | NUR ---
DISCHARGE INSTRUCTIONS REVIEWED WITH PT AND VERBALIZES UNDERSTANDING WITHOUT ANY QUESTIONS. SALINE LOCK REMOVED WITH TIP INTACT. PT LEFT FLOOR VIA W/C WITH ALL PERSONAL BELONGINGS AND LEFT FACILITY VIA PRIVATE VEHICLE WITH HER .
--- NOTE | 2018-05-13 08:15 | MORECARE ---
CASE MANAGEMENT DISCHARGE SUMMARY PATIENT: LAURA HAMMOND UNIT: [id number] ADM DATE: 05/11/18 AGE: 77 : 42 SEX: F ROOM/BED: D.2102 AUTHOR: RIGOBERTO MALCOLM PHYSICIAN: REFERRING PHYSICIAN: FROILAN TAYLOR MD DATE OF SERVICE: 05/13/18 Discharge Plan Patient Name: LAURA HAMMOND [facility] [facility] 1940 Planned Disposition: Home Anticipated Discharge Date: 05/12/18 Discharge Date: 05/12/2018 Expected LOS: 1 Initial Reviewer: [email or web address] Initial Review Date: 05/12/2018 Generated: 05/13/18 9:15 am Coverage Notice Reviewer: [email or web address] Adwoa Ross Notice Issued Date-Time: 05/11/2018 19:25 Notice Type: Medicare Outpatient Observation Notice Notice Delivered To: Patient 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
--- NOTE | 2018-05-13 08:21 | MORECARE ---
CASE MANAGEMENT DISCHARGE SUMMARY PATIENT: LAURA HAMMOND UNIT: [id number] ADM DATE: 05/11/18 AGE: 77 : 42 SEX: F ROOM/BED: D.210 AUTHOR: RIGOBERTO MALCOLM PHYSICIAN: REFERRING PHYSICIAN: FROILAN TAYLOR MD DATE OF SERVICE: 05/13/18 Discharge Plan Patient Name: LAURA HAMMOND [facility] [facility] 1940 Planned Disposition: Home Anticipated Discharge Date: 05/12/18 Discharge Date: 05/12/2018 Expected LOS: 1 Initial Reviewer: [email or web address] Initial Review Date: 05/12/2018 Generated: 05/13/18 9:21 am Coverage Notice Reviewer: [email or web address] Adwoa Ross Notice Issued Date-Time: 05/11/2018 19:25 Notice Type: Medicare Outpatient Observation Notice Notice Delivered To: Patient 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
--- NOTE | 2018-05-17 12:22 | OP ---
PATIENT NAME: LAURA HAMMOND MEDICAL RECORD: [id number] :44 LOCATION:D.M2 D.2102 ADMISSION DATE:05/11/18 SURGEON: SUMIT TREJO MD DATE OF OPERATION: 05/12/2018 PROCEDURE: Left heart catheterization, selective coronary angiography plus BRICE injection plus stenting to right coronary, right femoral artery approach. CATHETERS: A 5-[place] Islander sheath, 5/4 left and right Amparo, 5/4 pig. We proceeded immediately to PTCA and stenting of the right after procedure was finished. FINDINGS: Left ventriculography in 30-degree WEN view: Normal wall motion and normal systolic function. CORONARY ANATOMY: LEFT MAIN: Left main is free of disease. LAD: It has a diffuse 70% then reaching 80% restenosis of previously placed stent. BRICE to LAD is atretic. CIRCUMFLEX: Small vessel luminal irregularities, but no critical stenosis. RIGHT CORONARY ARTERY: It has long diffuse typical diabetic stenosis right before the bifurcation of PD and PL branches with a distal 80% and then sequential 90% more proximally. PLAN: Intervention to the right momentarily. DESCRIPTION OF PROCEDURE: A 5-[place] sheath was exchanged for a 6-[place] sheath. Hockey stick guide catheter provided excellent guide catheter support followed by 300-cm Whisper wire. Pre-deployment balloon used was 3.0 x 2.0 balloon, inflated at all the areas of stenosis up to 10 atmospheres pre-deployment. Next, stents were placed in the following fashion; distally, a 12-mm x 3.0 Burke drug-eluting stent up 14 atmospheres. Then, to cover the entire area, we used a 34 drug-eluting stent again up to 14 atmospheres for 45 seconds. Final angiography showed excellent resolution of long diffuse, up to 80% stenosis. No significant residual. ALEXIS flow was 3 throughout the procedure. Heparin and Integrilin were used in the lab. At this point in time, she will need aspirin, Plavix, and anticoagulant for one month. Then, we would switch to Plavix anticoagulant and Plavix only. Further recommendations as above. TRANSINT:[id number] Voice Confirmation ID: [id number] DOCUMENT ID: [id number] SUMIT TREJO MD at 1222 CC: [id number] DICTATION DATE: 05/12/18 0939 TRAFFIC INCIDENT MANAGEMENT MANAGER: 05/12/18 1138 DIS IN 05/12/18 [facility] [address] [facility] [place] [address]
--- NOTE | 2018-05-17 12:22 | CN ---
PATIENT NAME:LAURA HAMMOND MEDICAL RECORD: [id number] : 44 LOCATION:D. D.2102 ADMIT DATE: 05/11/18 ACCOUNT: [id number] CONSULTING PHYSICIAN: SUMIT TREJO MD REFERRING PHYSICIAN: FROILAN TAYLOR MD DATE OF CONSULTATION: 05/11/2018 HISTORY OF PRESENT ILLNESS: A 77-year-old female with a known history of coronary artery disease status post coronary bypass grafting approximately 4 years ago. She has a history of hypertension, diabetes mellitus, had onset last night of marked dyspnea, shortness of breath, pain radiating to the left arm in a wax and wane course. Initial cardiac enzymes are negative; however, they are elevated at this point. Mitigating factors, she is on Coumadin as well as has an ALLERGY TO CONTRAST, we were asked to see her concerning her cardiovascular status. PAST MEDICAL HISTORY: 1. History of diabetes mellitus. 2. Hypertension. 3. Hyperlipidemia. 4. Hypothyroidism, on replacement. ALLERGIES: INCLUDE PENICILLIN, CONTRAST, STATIN THERAPY, AND CIPRO. SOCIAL HISTORY: Nonsmoker, nondrinker. She takes care of her ADLs on a regular basis. MEDICATIONS: On admission include Coumadin per scale, lisinopril 10 mg p.o. every day, aspirin 81 every day, Prevacid 15 daily, glipizide 5 mg p.o. every day, and insulin per scale. REVIEW OF SYSTEMS: The patient reports easy bruising but reports no swollen glands. The patient reports no fever, no night sweats, no significant weight gain, no significant weight loss. No significant exercise tolerance. The patient reports no dry eyes, no irritation, no vision change. Patient reports no difficulty hearing and no ear pain. Patient reports no frequent nose bleeds or nose and sinus problems. Patient reports on arm pain on exertion. No shortness of breath while lying down. No history of heart murmur. Patient reports no cough, no wheezing or coughing up blood. Patient reports no abdominal pain, no vomiting. Normal appetite. No diarrhea and not vomiting blood. No nausea and no constipation. Patient reports no incontinence. No difficulty urinating. No hematuria. No increased frequency. Patient reports no muscle aches. No weakness, no arthralgias, no back pain. No swelling of the extremities. Patient reports no abnormal mole, no jaundice, no rashes. Reports no loss of consciousness. No weakness and no numbness. No seizures, dizziness, or headaches. The patient reports no depression, no sleep disturbance, feeling safe in a relationship and no alcohol abuse. Patient reports on fatigue. Reports no runny nose or sinus pressure. No itching, no hives, and no frequent sneezing. PHYSICAL EXAMINATION: GENERAL: Pleasant female, in no acute distress. VITAL SIGNS: 165/67, pulse 71 and regular. HEENT: Normocephalic, atraumatic. NECK: No JVD or bruit. CONSULT REPORT [id number] LAURA HMAMOND HEART: Regular. LUNGS: Good air excursion. ABDOMEN: Soft, nontender. EXTREMITIES: Pulses 2+, there is no edema. DIAGNOSTIC DATA: ECG showed nonspecific ST-T changes. IMPRESSION: Acute coronary syndrome/[id number] myocardial infarction, will plan hydration, steroids, vitamin K for reversal of Coumadin, and angiography in the a.m. TRANSINT:[id number] Voice Confirmation ID: [id number] DOCUMENT ID: [id number] SUMIT TREJO MD at 1222 CC: [id number] DICTATION DATE: 05/11/18 1329 EYE PHYSICIAN: 05/11/18 [id number] DIS IN 05/12/18 [id number] [place] [address]
== END 2018-05-12 13:50 | disposition home or self-care (01) ==
LOC: D.ER 04:54 → OBSVTIME 06:12 → D.EDHOLD 06:12 → D.M2 08:40
PROVIDERS: Emergency Medicine; ADMIT Internal Medicine Nephrology
DX: I25.110 Atherosclerotic heart disease of native coronary artery with unstable angina pectoris (principal); N17.9 Acute kidney failure, unspecified; I10 Essential (primary) hypertension; E03.9 Hypothyroidism, unspecified; E78.5 Hyperlipidemia, unspecified; E11.9 Type 2 diabetes mellitus without complications; I48.91 Unspecified atrial fibrillation; Z86.718 Personal history of other venous thrombosis and embolism; Z79.01 Long term (current) use of anticoagulants; F32.9 Major depressive disorder, single episode, unspecified; D64.9 Anemia, unspecified; F41.9 Anxiety disorder, unspecified
CPT/HCPCS: 93459; C9600

== ENCOUNTER → 2018-06-13 07:43 | Outpatient (CLI) | payer MEDICARE, OTHER ==
[~2018-06-13] VITALS: Ht 162.6 cm; Wt 90.9 kg
[~2018-06-13 07:43] MED LIST changes: +COUMADIN2.5 MG PO; +PLAVIX75 MG PO; +PROTONIX40 MG PO
[2018-06-13 08:25] VITALS: BP 169/70; Ht 162.6 cm; Wt 90.9 kg
[2018-06-13 08:41] LABS: BASOPHILS 0 % (0-2); EOSINOPHILS 0 % (0-7); HEMATOCRIT 34.4 % (36.0-48.0); HEMOGLOBIN 11.6 g/dL (12-16); IMMATURE GRANULOCYTES 0.2 % (0-5); LYMPHOCYTES 8.1 % (15-50); MCH 31.9 pg (26.0-34.0); MCHC 33.7 g/dL (31.0-37.0); MCV 94.5 fL (80.0-100.0); MEAN PLATELET VOLUME 11.1 fL (7.4-10.4); MONOCYTES 1.2 % (2-11); NEUTROPHILS 90.5 % (40-80); RBC 3.64 10x6/uL (4.00-5.40); RDW 13.4 % (11.5-14.5); WBC 5.9 10x3/uL (4.8-10.8)
[2018-06-13 08:42] LABS: ANION GAP 19.3 mmol/L (8-16); CALCIUM 9.2 mg/dL (8.5-10.1); CARBON DIOXIDE 21.6 mmol/L (21.0-32.0); CREATININE - SERUM 1.7 mg/dL (0.6-1.3); POTASSIUM - SERUM 4.9 mmol/L (3.5-5.1)
[2018-06-13 08:43] LABS: PLATELET COUNT 251 10x3/uL (130-400)
--- NOTE | 2018-06-13 09:05 | NUR ---
DR CHAUDHARY NOTIFIED OF GLUCOSE 436, NEW ORDER FOR HUMULIN R 4 UNITS SQ X1 NOW, FLUIDS TO PUMP AT 200 CC PER HOUR FOR HYDRATION PRIOR TO CATH.
--- NOTE | 2018-06-13 09:30 | NUR ---
0910 FLUIDS INFUSING PER ORDERS.
[2018-06-13 10:42] LABS: INR 1.8 (0.85-1.17); PROTIME 20.2 SECONDS (11.6-15.0)
== END | disposition home or self-care (01) ==
LOC: D.CATH 07:43
PROVIDERS: ATTEND Internal Medicine Cardiovascular Disease
DX: I25.110 Atherosclerotic heart disease of native coronary artery with unstable angina pectoris (principal); Z53.09 Procedure and treatment not carried out because of other contraindication; Z01.812 Encounter for preprocedural laboratory examination

== ENCOUNTER → 2018-08-20 16:46 | Outpatient (CLI) | payer MEDICARE, OTHER ==
[2018-06-13 08:25] VITALS: BMI 34.4
[2018-08-20 17:16] LABS: T4 THYROXINE 13.4 ug/dL (4.7-13.3); THYROID STIMULATING HORMONE 1.15 uIU/mL (0.36-3.74)
== END | disposition home or self-care (01) ==
LOC: D.LABREF 16:46
PROVIDERS: ATTEND Internal Medicine Cardiovascular Disease
DX: R53.83 Other fatigue (principal)

== ENCOUNTER → 2019-01-21 08:51 | Outpatient (CLI) | payer MEDICARE, OTHER ==
[2018-06-13 08:25] VITALS: BMI 34.4
== END | disposition home or self-care (01) ==
LOC: D.CT 08:51
PROVIDERS: ATTEND Family Medicine
DX: R10.84 Generalized abdominal pain (principal)

== ENCOUNTER 2019-02-17 10:00 | Outpatient (CLI) | payer MEDICARE, OTHER ==
[2018-06-13 08:25] VITALS: BMI 34.4
== END 2019-02-17 23:59 | disposition home or self-care (01) ==
LOC: D.MAMMO 10:00
PROVIDERS: ATTEND Family Medicine
DX: Z12.31 Encounter for screening mammogram for malignant neoplasm of breast (principal)

== ENCOUNTER → 2019-04-04 09:12 | Outpatient (CLI) | payer MEDICARE, OTHER ==
[2018-06-13 08:25] VITALS: BMI 34.4
== END | disposition home or self-care (01) ==
LOC: D.US 09:12
PROVIDERS: ATTEND Internal Medicine Hematology & Oncology
DX: R60.0 Localized edema (principal); I82.402 Acute embolism and thrombosis of unspecified deep veins of left lower extremity; Z79.01 Long term (current) use of anticoagulants; Z86.718 Personal history of other venous thrombosis and embolism

== ENCOUNTER 2019-04-10 06:08 | Outpatient (CLI) | payer MEDICARE, OTHER ==
[~2019-04-10] VITALS: Ht 162.6 cm; Wt 88.2 kg
--- NOTE | ~2019-04-10 | HEMODYNAMI ---
PATIENT:LAURA HAMMOND MEDICAL RECORD: [id number] : 44 LOCATION:D.CAT ADMISSION DATE: 04/10/19 Generatedon:04/11/20198:36 Patient name: LAURA HAMMOND Patient #: [id number] SSN: [id number] : 1940 Date of study: 04/10/2019 Page: Of Hemodynamic Procedure Report Patient Data Patient Demographics Procedure consent was obtained First Name: LAURA Gender: Female Last Name: STEPHANY : 1940 [facility] Initial: J Age: 78 year(s) Patient #: [id number] Race: SSN: [id number] Additional ID: [id number] Contact details [address]: [address] [place] [address] State: [place] City: [place] Zip code: [address] Past Medical History History of disease Date Diagnosis Comments CAD Allergies Allergen Reaction Date Comments Reported Iodine 05/12/2018 Penicillins 05/12/2018 Statins 05/12/2018 Other allergy 05/12/2018 Gadolinium, vaseline, cipro Other allergy 04/10/2019 IODINATED CONTRAST, PCN Admission Admission Data Admission Date: 04/10/2019 Admission Time: 6:08 Arrival Date: 04/10/2019 Arrival Time: 0:00 Admit Source: Other Insurance Payor: Medicare [facility] #: [id number] Height (in.): 64 BSA: 1.93 (m2) Height (cm.): 162.56 BMI: 33.37 (kg/m2) Weight (lbs.): 194.4 Weight (kg.): 88.18 Lab Results Lab Result Date: 04/10/2019 Lab Result Time: 0:00 Biochemistry Name Units Result Min Max BUN mg/dl 27 --(----)-* 7 18 Creatinine mg/dl 1.4 --(----)*- 0.6 1.3 eGFR ml/min 39 *-(----)-- 90 120 NONAFRICAN CBC Name Units Result Min Max Hematocrit % 37.9 *-(----)-- 42 54 Hemoglobin g/dl 12.5 *-(----)-- 13.5 17.5 Procedure Procedure Types Cath Procedure Diagnostic Procedure LH LH w/Coronaries w/Grafts Sedation Charges Moderate Sedation up to 30 minutes PCI Procedure PTCA PTCA Initial Hemochron ACT Test Procedure Description Procedure Date Procedure Date: 04/10/2019 Procedure Start Time: 8:11 Procedure End Time: 8:44 Procedure Staff Name Function Lis Blanchard RN Nurse Cayden Mims MD Performing Physician Melissa [facility] Muriel Anguiano RT Monitor Indication CAD CABG Procedure Data Cath Procedure Fluoroscopy Diagnostic fluoroscopy Total fluoroscopy Time: 7.2 time: 7.2 min min Diagnostic fluoroscopy Total fluoroscopy dose: 955 dose: 955 mGy mGy Contrast Material Contrast Material Type Amount (ml) Isovue 370 106 Entry Location Entry Primary Successful Side Size Upsize Upsize Entry Closure Succes sful Closure Location (Fr) 1 (Fr) 2 (Fr) Remarks Device Remarks Femoral Right 5 Fr 6 Fr Exoseal artery Short Estimated blood loss: 10 ml Diagnostic catheters Device Type Used For End Catheter Placement MULTIPACK JL 4.0 5Fr Procedure catheter MULTIPACK 3DRC 5Fr Procedure catheter DIAGNOSTIC IM 5Fr Procedure catheter ([id number]) MULTIPACK Pigtail 5 Fr Procedure catheter Procedure Complications No complications Procedure Medications Medication Administration Route Dosage Oxygen etCO2 Nasal cannula 2 l/min Lidocaine 2% added to field 20 Heparin Flush Bag added to field 2 bags (1000units/500ml NS) 0.9% NaCl I.V. 100 ml/hr Versed I.V. 2 mg Fentanyl I.V. 50 mcg Versed I.V. 1 mg Fentanyl I.V. 50 mcg Versed I.V. 1 mg Heparin Bolus I.V. 8500 units Hemodynamics Rest BSA: 1.93 (m2) HGB: 12.5 (g/dl) O2 Consumption: Estimated: 182.51 (ml/min) O2 Co nsumption indexed: Estimated:94.56 (ml/min/m) Heart Rate: 80 (bpm) Pressure Samples Time Site Value (mmHg) Purpose Heart Use Rate(bpm) 8:23 LV 146/1,14 Snapshot 80 8:24 LV 167/2,14 Pullback 80 8:24 AO 164/59(103) Pullback 80 Gradients Valve Time Site 1 Site 2 Mean SEP/DFP Peak To Heart Use (mmHg) (sec/min) Peak Rate (mmHg) (bpm) Aortic 8:24 LV AO 7 20 3 80 167/2,14 164/59(103) Calculations Valve P-P Mean Valve Index Valve Source Name Gradient Area Flow (cm2) Aortic 3 7 3 7 Snapshots Pre Cath Intra NCS Post Cath Vital Signs Time Heart Resp SPO2 etCO2 NIBP (mmHg) Rhythm Pain Sedation Rate (ipm) (%) (mmHg) Status Level (bpm) 7:58:54 74 22 99 36.3 192/83(134) NSR 0 (11) 10(A) , No pain 8:03:34 76 14 99 20 153/81(110) NSR 0 (11) 10(A) , No pain 8:08:13 72 15 99 35.6 148/71(109) NSR 0 (11) 9(A) , No pain 8:12:47 75 42 99 36.3 169/74(130) NSR 0 (11) 9(A) , No pain 8:17:30 79 19 98 36.3 160/81(113) NSR 0 (11) 9(A) , No pain 8:22:12 81 16 98 37.1 158/71(130) NSR 0 (11) 9(A) , No pain 8:26:51 78 28 98 37.1 163/79(110) NSR 0 (11) 9(A) , No pain 8:31:32 77 23 98 35.6 158/72(116) NSR 0 (11) 9(A) , No pain 8:36:10 82 22 98 36.3 160/80(124) NSR 0 (11) 9(A) , No pain 8:40:49 78 26 98 35.5 168/76(125) NSR 0 (11) 10(A) , No pain Medications Time Medication Route Dose Verified Delivered Reason Notes Effectiveness by by 8:28:47 Heparin Bolus I.V. 8500 Cayden Buffie for hepari n units Prasanna Blanchard RN anticoagulation dose was given at 08:28 on 04/10/2019 not 2004. error in timing on [facility]. 8:01:13 Oxygen etCO2 2 Cayden Buffie used for Nasal l/min Prasanna Blanchard RN procedure cannula 8:01:20 Lidocaine 2% added 20ml Cayden Cayden for local to vial Prasanna Mims MD anesthetic field 8:01:26 Heparin Flush added 2 Cayden Cayden used for Bag to bags Prasanna Mims MD procedure (1000units/500ml field NS) 8:01:35 0.9% NaCl I.V. 100 Cayden Buffie Per physician ml/hr Prasanna Blanchard RN 8:05:39 Versed I.V. 2 mg Cayden Buffie for sedation Prasanna Blanchard RN 8:05:45 Fentanyl I.V. 50 Cayden Buffie for sedation mcg Prasanna Blanchard RN 8:12:04 Versed I.V. 1 mg Cayden Buffie for sedation Prasanna Blanchard RN 8:12:07 Fentanyl I.V. 50 Cayden Buffie for sedation mcg Prasanna Blanchard RN 8:26:09 Versed I.V. 1 mg Cayden Buffie for sedation Prasanna Blanchard RN Procedure Log Time Note 7:40:47 Lis Blanchard RN sent for patient. Start room use. 8:28:47 Heparin Bolus 8500 units I.V. was administered by Lis Blanchard RN; for anticoagulation; heparin dose was given at 08:28 on 04/10/2019 not 2004. error in timing on [facility]. Verbal order read back and verified. 18:40:47 ACT drawn and resulted at OUT OF RANGE seconds. (normal therapeutic range 180-240 seconds). 18:40:47 Pre PCI Site: [place] dRCA has 90% stenosis. 7:30:49 Informed consent obtained and on chart 7:31:59 Procedure Status Elective Heart Cath (OP). 7:32:01 Time tracking: Regular hours (M-F 7:00 - 5:00) 7:32:04 Plan of Care:Hemodynamics will remain stable., Cardiac rhythm will remain stable., Comfort level will be maintained., Respiratory function will remain adequate., Patient/ family verbilizes understanding of procedure., Procedure tolerated without complication., Recovers from procedure without complications.. 7:33:30 H&P Date Dictated: 03/24/2019 Within 30 days and on chart., H&P Addendum completed by physician on day of procedure. (MUST COMPLETE FOR ALL OUTPATIENTS). 7:35:55 Patient allergic to Other allergyIODINATED CONTRAST, PCN 7:36:29 Lab Result : Hemoglobin 12.5 g/dl 7:36:29 Lab Result : Hematocrit 37.9 % 7:36:29 Lab Result : eGFR NONAFRICAN 39 ml/min 7:36:29 Lab Result : BUN 27 mg/dl 7:36:29 Lab Result : Creatinine 1.4 mg/dl 7:44:42 Indication : CAD 7:44:49 Indication : CABG 7:47:48 Risk of Mortality: .1 7:47:53 Risk of blood transfusion: 3.2 7:47:56 Risk of DONITA: 2 7:48:08 ACC Patient presents with Stable Angina CCS Anginal Class 3--Marked limitation of physical activity, angina occurs with ordinary activity.. 7:48:16 Patient received from Pre/Post Procedure Room to CCL 1 Alert and oriented. Tansferred to table in Supine position. 7:48:18 Correct patient and procedure confirmed by team. 7:48:18 Warm blankets applied, and nicolette hugger turned on for patient comfort. 7:48:19 ECG and BP/O2 sat monitors applied to patient. 7:51:35 Pre-procedure instructions explained to patient. 7:51:36 Pre-op teaching completed and patient verbalized understanding. 7:51:38 Family in waiting room. 7:51:40 Patient NPO since Midnight. 7:51:42 Is the patient allergic to Iodine/contrast media? No. 7:51:44 Is patient on blood thinner?Yes 7:51:47 ACC The patient was administered the following blood thiners within the last 24 hours: ACCPlavix 7:51:49 Patient diabetic? Yes. 7:51:51 If diabetic: On Metformin? Yes 7:51:56 If on Metformin: Last Dose? 04/05/2019 7:52:00 Patient not . Patient is over age 55. 7:52:01 ----Pre-sedation anethsthesia assessment.---- 7:52:05 Previous problem with sedation/anesthesia? No ? 7:52:06 Snore? Yes 7:52:08 Sleep apnea? No 7:52:09 Deviated septum? No 7:52:10 Opens mouth fully? Yes 7:52:11 Sticks out tongue? Yes 7:52:44 Airway obstruction? No ? 7:52:48 Dentures? No ? 7:53:19 Pre procedure: right dorsailis pedis pulse 2+ Normal; easily identifiable; not easily obliterated 7:53:23 Patient pain scale 0/10 ?. 7:53:35 IV patent on arrival in right antecubital with 0.9% NaCl at [facility]. 7:53:39 Lab results completed and on chart. 7:53:43 Stress Test: no; N/A ? 7:53:48 Vital chart was started 7:54:34 Baseline sample Acquired. 7:54:38 Rhythm: sinus rhythm 7:54:52 Full Disclosure recording started 7:55:05 Right groin area was prepped with chlora-prep and draped in sterile fashion 7:55:06 Alarms reviewed by R. N. 7:55:07 Sharps counted by scrub and verified by R.N. 7:55:10 Use device set Femoral Dx 7:55:12 ACIST Syringe (26421) opened to sterile field. 7:55:14 Medline Cath Pack ([id number]) opened to sterile field. 7:55:17 Bag Decanter (2002S) opened to sterile field. 7:55:19 ACIST Hand Control (33912) opened to sterile field. 7:55:20 ACIST Manifold (20946) opened to sterile field. 7:55:21 DIAGNOSTIC Multipack 5Fr catheter set ([id number]) opened to sterile field. 7:55:24 SHEATH 5FR [place] (CUT244) opened to sterile field. 7:55:25 EMERALD Guide Wire (414-360) opened to sterile field. 7:55:58 Arrival Date: 04/10/2019 12:00:00 AM 7:56:07 Insurance Payor : Medicare 7:56:38 Patient Height : 64 inches 7:56:42 Patient Weight : 194.4 lbs 7:56:45 Admit Source: Other 7:56:52 Diagnostic Cath Status : Elective 8:01:13 Oxygen 2 l/min etCO2 Nasal cannula was administered by Lis Blanchard RN; used for procedure; Verbal order read back and verified. 8:01:20 Lidocaine 2% 20ml vial added to field was administered by Cayden Mims MD; for local anesthetic; Verbal order read back and verified. 8:01:26 Heparin Flush Bag (1000units/500ml NS) 2 bags added to field was administered by Cayden Mims MD; used for procedure; Verbal order read back and verified. 8:01:35 0.9% NaCl 100 ml/hr I.V. was administered by Lis Blanchard RN; Per physician; Verbal order read back and verified. 8:03:11 Baseline sample Acquired. 8:03:31 Final Timeout: patient, procedure, and site verified with staff and physician. All members of the team are in agreement. 8:03:31 --------ALL STOP TIME OUT------ 8:03:33 Right groin site verified by team. 8:03:37 Fire Safety Assessment: A--An alcohol-based skin anteseptic being used preoperatively., C--Open oxygen or nitrous oxide is being used., D--An ESU, laser, or fiber-optic light is being used. 8:03:42 Physical assessment completed. ASA score P 2 - A patient with mild systemic disease as per Cayden Mims MD. 8:04:16 3b) 30-44 Moderately reduced kidney function. 8:04:19 Maximum allowable contrast dose (3.7 X eGFR X 0.75)108 ml. 8:04:24 Sedation plan: IV Moderate Sedation Medication:Versed, Fentanyl 8:05:39 Versed 2 mg I.V. was administered by Lis Blanchard RN; for sedation; Verbal order read back and verified. 8:05:45 Fentanyl 50 mcg I.V. was administered by Lis Blanchard RN; for sedation; Verbal order read back and verified. 8:10:14 Procedure started. 8:11:51 Local anesthetic to right femoral artery with Lidocaine 2% by Cayden Mims MD.INITIAL ACCESS ONLY 8:12:04 Versed 1 mg I.V. was administered by Lis Blanchard RN; for sedation; Verbal order read back and verified. 8:12:07 Fentanyl 50 mcg I.V. was administered by Lis Blanchard RN; for sedation; Verbal order read back and verified. 8:12:50 A 5 Fr sheath was inserted into the Right Femoral artery 8:13:33 A MULTIPACK JL 4.0 5Fr catheter was advanced over the wire and used for Procedure. 8:14:25 LCA angiography performed. 8:16:12 Catheter exchanged over wire. 8:17:17 A MULTIPACK 3DRC 5Fr catheter was advanced over the wire and used for Procedure. 8:17:46 RCA angiography performed. 8:18:52 Catheter exchanged over wire. 8:19:39 A DIAGNOSTIC IM 5Fr catheter ([id number]) was advanced over the wire and used for Procedure. 8:19:44 BRICE to LAD angiography performed- ATRETIC 8:21:21 Catheter exchanged over wire. 8:22:28 A MULTIPACK Pigtail 5 Fr catheter was advanced over the wire and used for Procedure. 8:23:32 Injector settings: Ml/sec: 10, Volume: 20, 8:23:36 LV hemodynamics recorded. 8:23:37 LV gram done using WEN 8:23:48 EF : 45 % 8:24:53 Catheter removed. 8:26:00 BMW 300cm Straight De Ruyter 2 wire ([id number]) opened to sterile field. 8:26:01 SHEATH 6FR [place] (TXU691) opened to sterile field. 8:26:02 TUBING High Pressure Extension Tubing (Mims) ([id number]) opened to sterile field. 8:26:03 INFLATOR Merit BasixCompak (CG2062) opened to sterile field. 8:26:09 Versed 1 mg I.V. was administered by Lis Blanchard RN; for sedation; Verbal order read back and verified. 8:26:16 Proceeding to intervention. 8:26:26 Sheath upsized to a 6 Fr Short. 8:27:01 GUIDE 6FR JR 4.0 catheter ([id number]) opened to sterile field. 8:27:10 6 Fr JR 4.O guide catheter was inserted over the wire 8:27:15 BMW 300 wire advanced. 8:33:38 Inflate balloon Inflation number: 1 A Mozec Rx 3.0 x 14 balloon was prepped and advanced across the Dist RCA , then inflated to 15 RAMIREZ for 0:00 (min:sec) . 8:34:46 Inflation number: 2 The Mozec Rx 3.0 x 14 balloon was reinflated across the Dist RCA , to 14 RAMIREZ for 0:00 (min:sec) . 8:35:17 Inflation number: 3 The Mozec Rx 3.0 x 14 balloon was reinflated across the Dist RCA , to 14 RAMIREZ for 0:00 (min:sec) . 8:35:56 ACCDominant side:Right 8:36:21 Balloon removed over the wire. 8:36:23 Wire removed. 8:36:24 Guide catheter removed. 8:36:35 EXOSEAL 6Fr (EX600) opened to sterile field. 8:36:43 Sheath removed intact; hemostasis achieved with Exoseal to the Right Femoral artery. 8:38:39 Procedure ended.(Physican Out) 8:38:53 Fluoroscopy time 07.20 minutes. 8:38:57 Fluoroscopy dose: 955 mGy 8:38:57 Flurop Dose total: 955 8:39:04 Dose Area Product 20208 mGy/cm. 8:39:08 Contrast amount:Isovue 370 106ml. 8:39:10 Maximum allowable dose exceeded? No. 8:39:12 Sharps counted by scrub and verified by R.N. 8:39:20 Post-op/insertion site Right Femoral artery dressed using a 4 x 4 and Tegaderm. 8:39:25 Post right femoral artery:stable, soft, clean and dry 8:39:27 Post Procedure Pulses reassessed and unchanged 8:39:31 Post procedure: right dorsailis pedis pulse 2+ Normal; easily identifiable; not easily obliterated. 8:39:34 Post-procedure physical assessment completed. ASA score P 2 - A patient with mild systemic disease as per Cayden Mims MD. 8:39:41 Post procedure rhythm: unchanged. 8:39:44 Estimated blood loss: 10 ml 8:39:46 Post procedure instruction explained to patient.Patient verbalizes understanding. 8:39:47 Patient needs reinforcement of post procedure teaching. 8:40:49 Procedure type changed to Cath procedure, Diagnostic procedure, LHC, LHC w/Coronaries w/Grafts, Sedation Charges, Moderate Sedation up to 30 minutes, PCI procedure, PTCA, PTCA Initial, Hemochron ACT Test 8:41:16 Procedure and supply charges have been captured, reviewed, submitted and are correct. 8:41:20 Procedure Complication : No complications 8:41:25 [facility] Findings: MVD- PCI performed (see procedure note) 8:41:29 Operative report dictated upon procedure completion. 8:41:31 See physician's report for complete and final results. 8:41:33 Report given to Pre/Post Procedure Room. 8:41:37 Patient transfered to Pre/Post Procedure Room with Stretcher. 8:44:27 Full Disclosure recording stopped 8:44:27 Procedure ended. 8:44:46 ACC-PCI Only Patient was given prescriptions, or instructed by Cayden Mims MD to start/continue the following medications upon discharge: Plavix 8:44:47 End room use (Document Last) 8:44:57 End room use (Document Last) 8:45:18 End room use (Document Last) 8:45:38 Vital chart was stopped Intervention Summary Intervention Notes Time ActionType Lesion and Equipment Action# Pressure Duration Attributes Used 8:33:38 Inflate Dist RCA Mozec Rx 1 15 00:00 balloon 3.0 x 14 balloon 8:34:46 Reinflate Dist RCA Mozec Rx 2 14 00:00 balloon 3.0 x 14 balloon 8:35:17 Reinflate Dist RCA Mozec Rx 3 14 00:00 balloon 3.0 x 14 balloon Device Usage Item Name Manufacture Quantity Catalog Hospital Part Current Minima l Lot# / Number Charge Number Stock Stock Serial# Code ACIST Acist 1 24344 875220 843468 002094 20 Syringe Medical (86533) Systems Inc Medline Medline 1 [id number] 417955 95735 535435 5 Cath Pack ([id number]) Bag Microtek 1 617240 95986 854124 5 Decanter Medical Inc. () ACIST Hand Acist 1 45537 218183 227755 561221 5 Control Medical (14055) Systems Inc ACIST Acist 1 82498 021597 185914 286468 5 Manifold Medical (46871) Systems Inc DIAGNOSTIC Cardinal 1 PV4629 786236 44024 720985 30 Multipack Health 5Fr catheter set (TT0244) SHEATH 5FR Terumo 1 FPZ406 736210 261507 356330 5 [place] (AHG765) EMERALD Cardinal 1 502-455 390896 369277 928733 5 Guide Wire Health (012-111) MULTIPACK Cardinal 1 262012 5 JL 4.0 5Fr Health catheter MULTIPACK Cardinal 1 456228 5 3DRC 5Fr Health catheter DIAGNOSTIC Cardinal 1 [id number] 413725 792629 177861 5 IM 5Fr Health catheter (593836B) MULTIPACK Cardinal 1 914583 5 Pigtail 5 Health Fr catheter BMW 300cm Sweet 1 6232551 469667 261552 050088 5 Straight Vascular De Ruyter 2 wire (9718664) SHEATH 6FR Terumo 1 RHW570 527425 119815 064684 40 [place] (ZVN037) TUBING High Merit 1 YI0010B 193888 13499 650865 10 Pressure Medical Extension Tubing (Mims) (HX1052Z) INFLATOR Merit 1 NY8672 278551 094670 040876 15 Merit Medical BasixCompak (YW1339) GUIDE 6FR Medtronic 1 UG1LG96 717015 38404 696107 1 JR 4.0 catheter (AT0VO03) Mozec Rx Cardinal 1 IFW90009 746136 442026199 351899 5 UMOD90 3.0 x 14 Health balloon EXOSEAL 6Fr Cardinal 1 EX600 133477 653644 496810 10 (EX600) Health Signature Audit [place] Stage Time Signature Unsigned Intra-Procedure 04/10/2019 Muriel Anguiano 8:44:57 AM RT(R) Intra-Procedure 04/10/2019 Lis Blanchard RN 8:45:18 AM Intra-Procedure 04/10/2019 Cayden Mims MD 8:45:36 AM 04/11/2019 8:35:22 AM Intra-Procedure 04/11/2019 Cayden Mims MD 8:36:16 AM Intra-Procedure 04/11/2019 Cayden Mims MD 8:36:40 AM Signatures Nurse : Lis Blanchard RN Signature : Date : Time : Performing Physician : Signature : Cayden Mims MD Date : Time : Monitor : Jen Abbott Signature : RT Date : Time : Monitor : Muriel Young Signature : RT Date : Time : [address] [place] [address]
[2019-04-10] MEDS ORDERED: SYNTHROID50 MCG PO (06:33)
[2019-04-10] MEDS ORDERED: METFORMIN HCL500 M1 PO (06:34)
[2019-04-10] MEDS ORDERED: VITAMIN D250000 UNIT PO (06:35)
[2019-04-10] MEDS ORDERED: TOUJEO SOL300 UNIT/1 SC (06:35)
[2019-04-10] MEDS ORDERED: LISINOPRIL-HCT1 EAC4 PO (06:35)
[2019-04-10] MEDS ORDERED: PROTONIX40 MG PO (06:37)
[2019-04-10 06:46] VITALS: BP 172/64; Ht 162.6 cm; Wt 88.2 kg
[2019-04-10 06:55] LABS: BASOPHILS 0.4 % (0-2); EOSINOPHILS 1.3 % (0-7); HEMATOCRIT 37.9 % (36.0-48.0); HEMOGLOBIN 12.5 g/dL (12-16); IMMATURE GRANULOCYTES 0.1 % (0-5); LYMPHOCYTES 12.9 % (15-50); MCH 31.7 pg (26.0-34.0); MCV 96.2 fL (80.0-100.0); MEAN PLATELET VOLUME 10.4 fL (7.4-10.4); MONOCYTES 8.6 % (2-11); NEUTROPHILS 76.7 % (40-80); PLATELET COUNT 264 10x3/uL (130-400); RBC 3.94 10x6/uL (4.00-5.40); RDW 14.1 % (11.5-14.5); WBC 6.9 10x3/uL (4.8-10.8)
[2019-04-10 07:02] LABS: INR 1.16 (0.85-1.17); PROTIME 14.2 SECONDS (11.6-15.0)
[2019-04-10 07:10] LABS: ANION GAP 15.1 mmol/L (8-16); CALCIUM 9.4 mg/dL (8.5-10.1); CARBON DIOXIDE 26.1 mmol/L (21.0-32.0); CREATININE - SERUM 1.4 mg/dL (0.6-1.3); LDL-HDL RATIO 2.6 ratio (1.5-3.5); POTASSIUM - SERUM 4.2 mmol/L (3.5-5.1)
--- NOTE | 2019-04-10 08:52 | NUR ---
PT ARRIVED BY STRETCHER. PLACED ON MONITORS. ASSESSMENT COMPLETED. VSS. FAMILY AT BEDSIDE. DR. CHAUDHARY ROUNDED AND SPOKE WITH PT'S FAMILY AT THIS TIME. CALL LIGHT WITHIN REACH.
--- NOTE | 2019-04-10 09:07 | NUR ---
PT RESTING COMFORTABLY. VSS. RIGHT GROIN DRESSING C/D/I. NO S/S OF HEMATOMA NOTED. CALL LIGHT WITHIN REACH. VSS AT THIS TIME.
--- NOTE | 2019-04-10 09:36 | NUR ---
RIGHT GROIN DRESSING C/D/I. NO S/S OF HEMATOMA NOTED. CALL LIGHT WITHIN REACH. VSS. FAMILY AT BEDSIDE. RIGHT PEDAL PULSE PALPABLE.
--- NOTE | 2019-04-10 10:10 | NUR ---
PT ON BEDPAN. VOIDED APPROX 250cc OF CLEAR YELLOW URINE NOTED. SANTIAGO-CARE GIVEN. VSS. RIGHT GROIN DRESSING C/D/I. NO S/S OF HEMATOMA NOTED. CALL LIGHT WITHIN REACH. FAMILY AT BEDSIDE. NO NEEDS AT THIS TIME.
--- NOTE | 2019-04-10 10:48 | NUR ---
RIGHT GROIN DRESSING C/D/I. NO S/S OF HEMATOMA NOTED. CALL LIGHT WITHIN REACH. FAMILY AT BEDSIDE. PT RESTING COMFORTABLY.
--- NOTE | 2019-04-10 11:49 | NUR ---
PT ON BEDPAN. VOIDED APPROX 500cc OF CLEAR YELLOW URINE WITHOUT DIFFICULTY. SANTIAGO-CARE GIVEN. RIGHT GROIN DRESSING C/D/I. NO S/S OF HEMATOMA NOTED. CALL LIGHT WITHIN REACH. PT'S HEAD OF BED INC TO 30 DEGREES. TOLERATED WELL. SET UP WITH SANDWICH TRAY AND DRINK AT THIS TIME. DENIES NAUSEA/PAIN.
--- NOTE | 2019-04-10 12:22 | NUR ---
RIGHT GROIN DRESSING C/D/I. NO S/S OF HEMATOMA NOTED. CALL LIGHT WITHIN REACH. VSS AT THIS TIME. BP AT BASELINE. PT ATE LUNCH. DENIES NAUSEA/PAIN AT THIS TIME. PIV D/C'D WITH CATH TIP INTACT. TOLERATED WELL. FAMILY AT BEDSIDE. PT INSTRUCTED TO GET DRESSED. WILL ASSIST NEEDED. CALL LIGHT WITHIN REACH.
--- NOTE | 2019-04-10 12:50 | NUR ---
DISCUSSED DISCHARGE INSTRUCTIONS WITH PT AND PT'S FAMILY. THEY VOICED UNDERSTANDING. RIGHT GROIN DRESSING C/D/I. NO S/S OF HEMATOMA NOTED.
--- NOTE | 2019-04-10 13:00 | NUR ---
PT TAKEN TO RESTROOM BY WHEELCHAIR. VOIDED WITHOUT DIFFICULTY. TAKEN OUT TO VEHICLE BY WHEELCHAIR. NO S/S OF DISTRESS NOTED. ALL BELONGINGS AND PAPERWORK IN HAND.
== END 2019-04-10 13:00 | disposition home or self-care (01) ==
LOC: D.CATH 06:08
PROVIDERS: ATTEND Internal Medicine Cardiovascular Disease
DX: I25.119 Atherosclerotic heart disease of native coronary artery with unspecified angina pectoris (principal); R94.39 Abnormal result of other cardiovascular function study; R06.00 Dyspnea, unspecified; E11.9 Type 2 diabetes mellitus without complications; Z79.84 Long term (current) use of oral hypoglycemic drugs; I10 Essential (primary) hypertension; E78.5 Hyperlipidemia, unspecified; R07.9 Chest pain, unspecified

== ENCOUNTER 2019-06-18 11:14 | Outpatient (CLI) | payer MEDICARE, OTHER ==
[~2019-06-18] VITALS: Ht 162.6 cm; Wt 90.5 kg
--- NOTE | ~2019-06-18 | HEMODYNAMI ---
PATIENT:LAURA HAMMOND MEDICAL RECORD: [id number] : 44 LOCATION:D.CAT ADMISSION DATE: 06/18/19 Generatedon:06/18/201913:50 Patient name: LAURA HAMMOND Patient #: [id number] SSN: [id number] : 1940 Date of study: 06/18/2019 Page: Of Hemodynamic Procedure Report Patient Data Patient Demographics Procedure consent was obtained First Name: LAURA Gender: Female Last Name: STEPHANY : 1940 [facility] Initial: J Age: 78 year(s) Patient #: [id number] Race: SSN: [id number] Additional ID: [id number] Contact details [address]: [address] [place] [address] State: [place] City: [place] Zip code: [address] Past Medical History History of disease Date Diagnosis Comments CAD Allergies Allergen Reaction Date Comments Reported Iodine 05/12/2018 Penicillins 05/12/2018 Statins 05/12/2018 Other allergy 05/12/2018 Gadolinium, vaseline, cipro Other allergy 04/10/2019 IODINATED CONTRAST, PCN Admission Admission Data Admission Date: 06/18/2019 Admission Time: 11:14 Arrival Date: 06/18/2019 Arrival Time: 13:00 Admit Source: Other Insurance Payor: Medicare [facility] #: [id number] Height (in.): 64 BSA: 1.93 (m2) Height (cm.): 162.56 BMI: 33.3 (kg/m2) Weight (lbs.): 194 Weight (kg.): 88 Lab Results Lab Result Date: 06/18/2019 Lab Result Time: 0:00 Biochemistry Name Units Result Min Max BUN mg/dl 25 --(----)-* 7 18 Creatinine mg/dl 1.3 --(---*)-- 0.6 1.3 eGFR ml/min 42 *-(----)-- 90 120 NONAFRICAN CBC Name Units Result Min Max Hemoglobin g/dl 12.2 *-(----)-- 13.5 17.5 Procedure Procedure Types Cath Procedure Diagnostic Procedure [facility] w/Coronaries Sedation Charges Moderate Sedation up to 45 minutes PCI Procedure Coronary Stent Coronary Stent Initial Hemochron ACT Test Procedure Description Procedure Date Procedure Date: 06/18/2019 Procedure Start Time: 13:18 Procedure End Time: 13:47 Procedure Staff Name Function Cayden Mims MD Performing Physician Kaykay Zuñiga RT Monitor Rupali Harrington RT Scrub Kimberlyn Gibbs RN Nurse Procedure Data Cath Procedure Fluoroscopy Diagnostic fluoroscopy Total fluoroscopy Time: 6 time: 6 min min Diagnostic fluoroscopy Total fluoroscopy dose: 987 dose: 987 mGy mGy Contrast Material Contrast Material Type Amount (ml) Isovue 300 118 Entry Location Entry Primary Successful Side Size Upsize Upsize Entry Closure Succes sful Closure Location (Fr) 1 (Fr) 2 (Fr) Remarks Device Remarks Femoral Right 5 Fr Exoseal artery Estimated blood loss: 5 ml Diagnostic catheters Device Type Used For End Catheter Placement MULTIPACK JL 4.0 5Fr Left Coronary catheter Angiography MULTIPACK 3DRC 5Fr Right Coronary catheter Angiography MULTIPACK Pigtail 5 Fr LV Angiography catheter Procedure Complications No complications Procedure Medications Medication Administration Route Dosage 0.9% NaCl I.V. 100 ml/hr Oxygen etCO2 Nasal cannula 2 l/min Lidocaine 2% added to field 20 Heparin Flush Bag added to field 2 bags (1000units/500ml NS) Plavix P.O. 75 mg Versed I.V. 2 mg Fentanyl I.V. 50 mcg Fentanyl I.V. 50 mcg Heparin Bolus I.V. 9000 units Hemodynamics Rest BSA: 1.93 (m2) HGB: 12.2 (g/dl) O2 Consumption: Estimated: 178.69 (ml/min) O2 Co nsumption indexed: Estimated:92.59 (ml/min/m) Heart Rate: 75 (bpm) Pressure Samples Time Site Value (mmHg) Purpose Heart Use Rate(bpm) 13:28 LV 176/-5,20 Snapshot 66 13:29 AO 167/63(106) Pullback 66 13:29 LV 174/2,21 Pullback 66 Gradients Valve Time Site 1 Site 2 Mean SEP/DFP Peak To Heart Use (mmHg) (sec/min) Peak Rate (mmHg) (bpm) Aortic 13:29 LV AO 8 21 7 66 174/2,21 167/63(106) Calculations Valve P-P Mean Valve Index Valve Source Name Gradient Area Flow (cm2) Aortic 7 8 7 8 Snapshots Pre Cath Intra NCS Post Cath Vital Signs Time Heart Resp SPO2 etCO2 NIBP (mmHg) Rhythm Pain Sedation Rate (ipm) (%) (mmHg) Status Level (bpm) 12:58:05 75 21 98 31 188/85(144) NSR 0 (11) 10(A) , No pain 13:02:37 70 18 96 35.2 191/83(140) NSR 0 (11) 10(A) , No pain 13:07:06 67 18 97 41.3 159/69(129) NSR 0 (11) 10(A) , No pain 13:11:26 69 16 98 37.6 159/78(125) NSR 0 (11) 10(A) , No pain 13:15:52 69 17 97 37.5 167/73(127) NSR 0 (11) 9(A) , No pain 13:20:25 69 14 97 39.8 172/72(139) NSR 0 (11) 9(A) , No pain 13:24:51 68 14 96 39 172/75(125) NSR 0 (11) 9(A) , No pain 13:29:25 67 13 98 36.8 172/65(133) NSR 0 (11) 9(A) , No pain 13:33:52 66 14 98 38.2 176/81(134) NSR 0 (11) 9(A) , No pain 13:38:24 64 27 98 37.5 165/78(133) NSR 0 (11) 9(A) , No pain 13:42:52 65 21 98 36 173/78(135) NSR 0 (11) 9(A) , No pain 13:47:23 68 20 98 37.5 181/84(154) NSR 0 (11) 10(A) , No pain Medications Time Medication Route Dose Verified Delivered Reason Notes Effectiveness by by 12:56:57 0.9% NaCl I.V. 100 Cayden Kimberlyn used for ml/hr Prasanna Gibbs mechanical integrity engineer 12:57:02 Oxygen etCO2 2 Cayden Kimberlyn used for Nasal l/min Prasanna Gibbs procedure cannula RN 12:57:10 Lidocaine 2% added 20ml Cayden Cayden for local to vial Prasanna Mims MD anesthetic field 12:57:14 Heparin Flush added 2 Cayden Cayden used for Bag to bags Prasanna Mims MD procedure (1000units/500ml field NS) 12:57:35 Plavix P.O. 75 mg Cayden Kimberlyn for Prasanna Gibbs antiplatelet RN therapy 13:03:11 Versed I.V. 2 mg Cayden Kimberlyn for sedation Prasanna Gibbs RN 13:03:27 Fentanyl I.V. 50 Cayden Kimberlyn for sedation mcg Prasanna Gibbs RN 13:10:44 Fentanyl I.V. 50 Cayden Kimberlyn for sedation mcg Prasanna Gibbs RN 13:30:52 Heparin Bolus I.V. 9000 Cayden Kimberlyn for verif ied units Prasanna Gibbs anticoagulation with Dr. FELICIANO Mims Procedure Log Time Note 12:43:01 Informed consent obtained and on chart 12:43:04 Diagnostic Cath Status : Elective 12:44:42 Admit Source: Other 12:44:43 Arrival Date: 06/18/2019 1:00:00 PM 12:45:15 Insurance Payor : Medicare 12:45:24 Patient Height : 64 inches 12:45:28 Patient Weight : 194 lbs 12:46:43 Lab Result : eGFR NONAFRICAN 42 ml/min 12:46:43 Lab Result : Hemoglobin 12.2 g/dl 12:46:43 Lab Result : BUN 25 mg/dl 12:46:43 Lab Result : Creatinine 1.3 mg/dl 12:46:52 ACC Patient presents with Stable Angina CCS Anginal Class 2--Slight limitation of ordinary activity. 12:47:10 ACCPatient has been prescribed/administered the following anti-anginal medication within the last 2 weeks: None 12:47:15 Procedure Status Elective Heart Cath (OP). 12:47:18 Kimberlyn Gibbs RN sent for patient. Start room use. 12:47:19 Time tracking: Regular hours (M-F 7:00 - 5:00) 12:47:24 Plan of Care:Hemodynamics will remain stable., Cardiac rhythm will remain stable., Comfort level will be maintained., Respiratory function will remain adequate., Patient/ family verbilizes understanding of procedure., Procedure tolerated without complication., Recovers from procedure without complications.. 12:56:47 Vital chart was started 12:56:57 0.9% NaCl 100 ml/hr I.V. was administered by Kimberlyn Gibbs RN; used for procedure; Verbal order read back and verified. 12:57:02 Oxygen 2 l/min etCO2 Nasal cannula was administered by Kimberlyn Gibbs RN; used for procedure; Verbal order read back and verified. 12:57:10 Lidocaine 2% 20ml vial added to field was administered by Cayden Mims MD; for local anesthetic; Verbal order read back and verified. 12:57:14 Heparin Flush Bag (1000units/500ml NS) 2 bags added to field was administered by Cayden Mims MD; used for procedure; Verbal order read back and verified. 12:57:28 Patient received from Pre/Post Procedure Room to [facility] 2 Alert and oriented. Tansferred to table in Supine position. 12:57:29 Warm blankets applied, and nicolette hugger turned on for patient comfort. 12:57:29 Correct patient and procedure confirmed by team. 12:57:29 ECG and BP/O2 sat monitors applied to patient. 12:57:30 Baseline sample Acquired. 12:57:35 Plavix 75 mg P.O. was administered by Kimberlyn Gibbs RN; for antiplatelet therapy; Verbal order read back and verified. 12:57:35 Rhythm: sinus rhythm 12:57:36 Full Disclosure recording started 12:57:41 H&P Date Dictated: 06/18/2019 Within 30 days and on chart., H&P Addendum completed by physician on day of procedure. (MUST COMPLETE FOR ALL OUTPATIENTS). 12:57:42 Pre-procedure instructions explained to patient. 12:57:43 Pre-op teaching completed and patient verbalized understanding. 12:57:44 Family in waiting room. 12:57:45 Patient NPO since Midnight. 12:57:47 Is the patient allergic to Iodine/contrast media? No. 12:57:49 Was the patient premedicated? Yes 12:57:50 Is patient on blood thinner?Yes 12:57:54 ACC The patient was administered the following blood thiners within the last 24 hours: Coumadin 12:58:29 Patient states last dose of Coumadin on 06/14/19 12:58:32 Patient diabetic? Yes. 12:58:33 If diabetic: On Metformin? Yes 12:58:35 If on Metformin: Last Dose? 06/17/2019 12:58:39 Previous problem with sedation/anesthesia? No ? 12:58:41 Snore? Yes 12:58:42 Sleep apnea? Yes 12:58:43 Deviated septum? No 12:58:44 Opens mouth fully? Yes 12:58:44 Sticks out tongue? Yes 12:58:46 Airway obstruction? No ? 12:58:52 Dentures? No ? 12:58:55 Pre procedure: right dorsailis pedis pulse 1+ Palpable, but thready & weak; easily obliterated 12:58:56 Pre procedure: left dorsailis pedis pulse 1+ Palpable, but thready & weak; easily obliterated 12:58:58 Patient pain scale 0/10 ?. 12:59:04 IV patent on arrival in left forearm with 0.9% NaCl at KVO. 12:59:06 Lab results completed and on chart. 13:01:50 Risk of Mortality: 0.1 13:01:55 Risk of blood transfusion: 1.8 13:01:58 Risk of DONITA: 0.8 13:02:02 Right groin area was prepped with chlora-prep and draped in sterile fashion 13:02:03 Alarms reviewed by R. N. 13:02:03 Sharps counted by scrub and verified by R.N. 13:02:14 Physician arrived 13:02:14 --------ALL STOP TIME OUT------ 13:02:14 Final Timeout: patient, procedure, and site verified with staff and physician. All members of the team are in agreement. 13:02:16 Right groin site verified by team. 13:02:19 Fire Safety Assessment: A--An alcohol-based skin anteseptic being used preoperatively., C--Open oxygen or nitrous oxide is being used., D--An ESU, laser, or fiber-optic light is being used. 13:02:22 Physical assessment completed. ASA score P 2 - A patient with mild systemic disease as per Cayden Mims MD. 13:02:38 3b) 30-44 Moderately reduced kidney function. 13:03:03 Maximum allowable contrast dose (3.7 X eGFR X 0.75)116 ml. 13:03:07 Sedation plan: IV Moderate Sedation Medication:Versed, Fentanyl 13:03:11 Versed 2 mg I.V. was administered by Kimberlyn Gibbs RN; for sedation; Verbal order read back and verified. 13:03:15 Use device set Femoral Dx 13:03:16 ACIST Syringe (55649) opened to sterile field. 13:03:16 Bag Decanter (2002S) opened to sterile field. 13:03:17 Medline Cath Pack ([id number]) opened to sterile field. 13:03:18 ACIST Hand Control (37913) opened to sterile field. 13:03:18 ACIST Manifold (74338) opened to sterile field. 13:03:18 DIAGNOSTIC Multipack 5Fr catheter set (QM2681) opened to sterile field. 13:03:19 Tegaderm 4 x 4 (1626W) opened to sterile field. 13:03:20 SHEATH 5FR [place] (UOS817) opened to sterile field. 13:03:20 EMERALD Guide Wire (706-665) opened to sterile field. 13:03:27 Fentanyl 50 mcg I.V. was administered by Kimberlyn Gibbs RN; for sedation; Verbal order read back and verified. 13:10:44 Fentanyl 50 mcg I.V. was administered by Kimberlyn Gibbs RN; for sedation; Verbal order read back and verified. 13:18:13 Procedure started. 13:18:16 Local anesthetic to right femoral artery with Lidocaine 2% by Cayden Mims MD.INITIAL ACCESS ONLY 13:18:24 A 5 Fr sheath was inserted into the Right Femoral artery 13:20:54 A MULTIPACK JL 4.0 5Fr catheter was advanced over the wire and used for Left Coronary Angiography. 13:23:30 LCA angiography performed. 13:23:33 Injector settings: Ml/sec: 3, Volume: 6, 13:24:02 Catheter removed. 13:24:07 A MULTIPACK 3DRC 5Fr catheter was advanced over the wire and used for Right Coronary Angiography. 13:25:15 RCA angiography performed. 13:25:18 Injector settings: Ml/sec: 3, Volume: 6, 13:27:26 Catheter removed. 13:27:31 A MULTIPACK Pigtail 5 Fr catheter was advanced over the wire and used for LV Angiography. 13:28:48 LV hemodynamics recorded. 13:28:49 LV gram done using WEN 13:28:51 Injector settings: Ml/sec: 5, Volume: 15, 13:29:08 EF : 55 % 13:29:44 Catheter removed. 13:29:46 Proceeding to intervention. 13:29:52 ACC Pre-intervention ALEXIS Flow is 3. 13:30:04 6 Fr jr 4 guide catheter was inserted over the wire 13:30:24 SHEATH 6FR [place] (CFE762) opened to sterile field. 13:30:24 INFLATOR Merit BasixCompak (RH5251) opened to sterile field. 13:30:25 TUBING High Pressure Extension Tubing (Prasanna) ([id number]) opened to sterile field. 13:30:36 GUIDE 6FR JR 4.0 catheter (RL2VH91) opened to sterile field. 13:30:46 BMW 300cm [place] 2 J wire ([id number]) opened to sterile field. 13:30:52 Heparin Bolus 9000 units I.V. was administered by Kimberlyn Gibbs RN; for anticoagulation; verified with Dr. Mims Verbal order read back and verified. 13:32:21 bmw wire advanced. 13:35:30 Inflate balloon Inflation number: 1 A EUPHORA 3.0 x 20 Balloon ([id number]) was prepped and advanced across the Mid RCA 90, then inflated to 16 RAMIREZ for 0:10 (min:sec) 0. 13:36:37 Balloon removed over the wire. 13:36:57 Pre PCI Site: Point [place] dRCA has 90% stenosis. 13:38:47 Place stent Inflation Number: 2 A LASHAE OTW 3.0 x 38 stent ([id number]) was prepped and advanced across the Mid RCA 90. The stent was deployed at 15 RAMIREZ for 0:10 (min:sec) 0. 13:39:37 Stent catheter was removed intact over wire. 13:42:20 Place stent Inflation Number: 3 A LASHAE OTW 3.0 x 18 stent ([id number]) was prepped and advanced across the Mid RCA 90. The stent was deployed at 16 RAMIREZ for 0:10 (min:sec) 0. 13:42:54 Stent catheter was removed intact over wire. 13:43:23 Wire removed. 13:43:23 Guide catheter removed. 13:43:29 EXOSEAL 6Fr (EX600) opened to sterile field. 13:44:14 Sheath removed intact; hemostasis achieved with Exoseal to the Right Femoral artery. 13:44:18 Procedure ended.(Physican Out) 13:44:30 Fluoroscopy time 06.00 minutes. 13:44:34 Flurop Dose total: 987 13:44:34 Fluoroscopy dose: 987 mGy 13:44:39 Dose Area Product 74799 mGy/cm. 13:44:50 ACC Post-intervention ALEXIS Flow is 3. 13:44:56 Post PCI Site: Point [place] mRCA has 0% stenosis. 13:45:09 Contrast amount:Isovue 300 118ml. 13:45:12 Maximum allowable dose exceeded? No. 13:45:14 Insertion/operative site no bleeding no hematoma. 13:45:16 Post-op/insertion site Right Femoral artery dressed using a 4 x 4 and Tegaderm. 13:45:17 Post Procedure Pulses reassessed and unchanged 13:45:20 Post procedure rhythm: unchanged. 13:45:59 Estimated blood loss: 5 ml 13:46:00 Post procedure instruction explained to patient.Patient verbalizes understanding. 13:46:00 Patient needs reinforcement of post procedure teaching. 13:46:37 Procedure type changed to Cath procedure, Diagnostic procedure, C, [facility] w/Coronaries, Sedation Charges, Moderate Sedation up to 45 minutes, PCI procedure, Coronary Stent, Coronary Stent Initial, Hemochron ACT Test 13:46:40 Procedure and supply charges have been captured, reviewed, submitted and are correct. 13:46:44 Procedure Complication : No complications 13:46:46 Vital chart was stopped 13:46:48 [facility] Findings: MVD- PCI performed (see procedure note) 13:46:50 Operative report dictated upon procedure completion. 13:46:50 See physician's report for complete and final results. 13:46:56 Report given to Pre/Post Procedure Room. 13:46:58 Patient transfered to Pre/Post Procedure Room with Stretcher. 13:46:59 Procedure ended. 13:46:59 Full Disclosure recording stopped 13:47:11 ACC-PCI Only Patient was given prescriptions, or instructed by Cayden Mims MD to start/continue the following medications upon discharge: Plavix 13:47:25 End room use (Document Last) 13:48:59 End room use (Document Last) 13:49:15 End room use (Document Last) 13:50:08 ACT drawn and resulted at >400- out of range seconds. (normal therapeutic range 180-240 seconds). Intervention Summary Intervention Notes Time ActionType Lesion and Equipment Action# Pressure Duration Attributes Used 13:35:30 Inflate Mid RCA EUPHORA 3.0 x 1 16 00:10 balloon 20 Balloon ([id number]) 13:38:47 Place stent Mid RCA LASHAE OTW 3.0 2 15 00:10 x 38 stent ([id number]) 13:42:20 Place stent Mid RCA LASHAE OTW 3.0 3 16 00:10 x 18 stent ([id number]) Device Usage Item Name Manufacture Quantity Catalog Hospital Part Current Mini mal Lot# / Number Charge Number Stock Stock Serial# Code ACIST Syringe Acist 1 32188 892387 244684 937741 20 (49102) Medical Systems Inc Bag Decanter Microtek 1 2001S 215307 04017 598393 5 (2001S) Medical Inc. Medline Cath Medline 1 [id number] 482913 50986 126522 5 Pack ([id number]) ACIST Hand Acist 1 55400 983705 068016 743380 5 Control Medical (16516) Systems Inc ACIST Acist 1 49718 208998 093999 205424 5 Manifold Medical (41512) Systems Inc DIAGNOSTIC Cardinal 1 KJ9261 112220 12126 691629 30 Multipack 5Fr Health catheter set (VQ5652) Tegaderm 4 x 3M 1 1626W 614820 878370 760612 5 4 (1626W) SHEATH 5FR Terumo 1 ZPN328 244512 827689 180933 5 [place] (BVM534) EMERALD Guide Cardinal 1 502-455 525545 953629 614808 5 Wire Health (502-455) MULTIPACK JL Cardinal 1 730427 5 4.0 5Fr Health catheter MULTIPACK Cardinal 1 265020 5 3DRC 5Fr Health catheter MULTIPACK Cardinal 1 754262 5 Pigtail 5 Fr Health catheter SHEATH 6FR Terumo 1 RLR365 891966 641952 086823 40 [place] (KAT281) INFLATOR Merit 1 ST1008 321751 873867 645790 15 Merit Medical BasixCompak (MT5026) TUBING High Merit 1 [id number] 646122 77850 896531 10 Pressure Medical Extension Tubing (Mims) (ZX7113P) GUIDE 6FR JR Medtronic 1 OR8ZX37 497884 56237 722131 1 4.0 catheter (QD3HR19) BMW 300cm Sweet 1 [id number] 952588 644595 698906 5 [place] 2 J Vascular wire (4653364D) EUPHORA 3.0 x Medtronic 1 [id number] 158604 282251 646017 5 [id number] 20 Balloon (QET6530O) LASHAE OTW 3.0 Medtronic 1 [id number] 097761 1072478 814100 5 [id number] x 38 stent ([id number]) LASHAE OTW 3.0 Medtronic 1 [id number] 142600 0073506 854185 5 [id number] x 18 stent ([id number]) EXOSEAL 6Fr Cardinal 1 EX600 532902 992778 506786 10 (EX600) Health Signature Audit [place] Stage Time Signature Unsigned Intra-Procedure 06/18/2019 Kaykay Zuñiga 1:48:59 PM RT(R) Intra-Procedure 06/18/2019 Kimberlyn Gibbs 1:49:15 PM RN Intra-Procedure 06/18/2019 Cayden Mims MD 1:50:46 PM Signatures Performing Physician : Signature : Cayden Mims MD Date : Time : Monitor : Kaykay Zuñiga RT Signature : Date : Time : Nurse : Kimberlyn Gibbs RN Signature : Date : Time : [place] [address] [place] [address]
[~2019-06-18 11:14] MED LIST changes: +LISINOPRIL-HCT1 EAC4 PO; +METFORMIN HCL500 M1 PO; +SYNTHROID50 MCG PO
[2019-06-18] MEDS ORDERED: ISOSORBIDE DINI30 MG PO (11:39)
[2019-06-18] MEDS ORDERED: NITROSTAT0.4 MG SL (11:40)
[2019-06-18 11:51] VITALS: BP 199/69; Ht 162.6 cm; Wt 90.5 kg
[2019-06-18 12:12] LABS: BASOPHILS 0.3 % (0-2); EOSINOPHILS 1.2 % (0-7); HEMOGLOBIN 12.2 g/dL (12-16); IMMATURE GRANULOCYTES 0.2 % (0-5); LYMPHOCYTES 17.6 % (15-50); MCHC 33.9 g/dL (31.0-37.0); MCV 94.5 fL (80.0-100.0); MEAN PLATELET VOLUME 10.6 fL (7.4-10.4); MONOCYTES 8.5 % (2-11); NEUTROPHILS 72.2 % (40-80); PLATELET COUNT 240 10x3/uL (130-400); RBC 3.81 10x6/uL (4.00-5.40); RDW 13.9 % (11.5-14.5); WBC 5.8 10x3/uL (4.8-10.8)
[2019-06-18 12:14] LABS: ANION GAP 12.5 mmol/L (8-16); CALCIUM 8.9 mg/dL (8.5-10.1); CARBON DIOXIDE 27.9 mmol/L (21.0-32.0); CREATININE - SERUM 1.3 mg/dL (0.6-1.3); LDL-HDL RATIO 2.6 ratio (1.5-3.5); POTASSIUM - SERUM 4.4 mmol/L (3.5-5.1)
--- NOTE | 2019-06-18 14:05 | NUR ---
PT REC'D TO ROOM 4 VIA STRETCHER FROM [employer]. MONITORS ESTAB. PT IS ON BEDPAN, C/O BLADDER PAIN - UNABLE TO VOID - DR. CHAUDHARY AWARE AND OK FOR BLAS. 16FR BLAS CATH PLACED WITHOUT DIFFICULTY, IMMEDIATE RETURN OF 350ML CLEAR, URINE. TUBING SECURED TO L LEG. PT REPORTED RELIEF OF ALL PAIN. SANTIAGO-CARE PROVIDED. R GROIN SITE SOFT, C/D/I, SBP FROM 223 TO 184 - WILL CONT CLOSE MONITORING. ALARMS ON. AT BS.
--- NOTE | 2019-06-18 14:20 | NUR ---
R GROIN SITE C/D/I, NO S/S BLEEDING OR HEMATOMA. PT RESTING QUIETLY, AT BS. ALARMS ON.
--- NOTE | 2019-06-18 14:50 | NUR ---
R GROIN SITE SOFT, NO S/S BLEEDING OR HEMATOMA. DENIES PAIN. SBP 186- WITHIN 20% OF PREANESTHESIA BP. ALARMS ON AND C/L IN REACH.
--- NOTE | 2019-06-18 15:05 | NUR ---
DR. CHAUDHARY IN TO TALK TO PT AND HER .
--- NOTE | 2019-06-18 15:30 | NUR ---
R GROIN SITE SOFT, NO S/S BLEEDING OR HEMATOMA. BLAS CATH PATENT AND DRAINING CLEAR, YELLOW URINE.
--- NOTE | 2019-06-18 16:00 | NUR ---
R GROIN SITE SOFT. NO S/S BLEEDING OR HEMATOMA. PT RESTING QUIETLY, DENIES NEEDS. ALARMS ON AND C/L IN REACH.
--- NOTE | 2019-06-18 16:45 | NUR ---
R GROIN SITE SOFT, NO S/S BLEEDING OR HEMATOMA. HOB ELEVATED AND SANDWICH TRAY PROVIDED WITH DIET COLA. AT BS.
--- NOTE | 2019-06-18 17:00 | NUR ---
SBP 204. DR. TREJO PAGED AND NOTIFIED, NEW ORDER REC'D - SEE EMAR.
--- NOTE | 2019-06-18 17:15 | NUR ---
SBP 190. PT DENIES ANY PAIN. ATE ALL OF SANDWICH. R GROIN SITE C/D/I.
--- NOTE | 2019-06-18 17:46 | NUR ---
BLAS CATH REMOVED INTACT, SANTIAGO-CARE PROVIDED. PIV D/C'D INTACT, DSG APPLIED. R GROIN SITE SOFT, C/D/I.
--- NOTE | 2019-06-18 17:55 | NUR ---
BP BACK TO BASELINE, R GROIN SITE C/D/I. PT ALLOWED UP TO GET DRESSED, ASSISTING.
--- NOTE | 2019-06-18 18:05 | NUR ---
ALL D/C INSTRUCTIONS REVIEWED WITH PT AND HER , INCLUDING RESTRICTIONS, MEDS AND FOLLOW-UP. PT TO BR - VOIDED WITH OUT PAIN OR DIFFICULTY. PT THEN D/C VIA WC TO PRIVATE VEHICLE WITH ALL PAPER WORK AND BELONGINGS.
== END 2019-06-18 18:05 | disposition home or self-care (01) ==
LOC: D.CATH 11:14
PROVIDERS: ATTEND Internal Medicine Cardiovascular Disease
DX: I25.110 Atherosclerotic heart disease of native coronary artery with unstable angina pectoris (principal); E78.5 Hyperlipidemia, unspecified; E11.9 Type 2 diabetes mellitus without complications; Z79.84 Long term (current) use of oral hypoglycemic drugs; I10 Essential (primary) hypertension; R06.00 Dyspnea, unspecified
CPT/HCPCS: 93458; C9600